=== PATIENT | female | born 1945 | race Caucasian/White ===

== ENCOUNTER 2025-02-13 19:43 | Inpatient (IN) ==
--- NOTE | 2025-02-13 19:58 | Emergency Department Note ---
Impression & Plan Hypoxia Admission ED Provider Note HPI: History obtained from EMS. The patient is a 79-year-old female who [facility] department [facility] over concern for hypoxia. Patient has been at the rehab facility for several days after a brief stay at [facility] after which she had negative CT imaging and negative MRI for altered mental status, weakness, and ambulatory difficulty. Patient had an episode of emesis today at rehab, a rapid response was called as the patient seemed to have some difficulty breathing shortly thereafter and was noted to be hypoxic and therefore was sent to the ER for further evaluation and concern for aspiration pneumonia. On arrival here to the ED, the patient seems confused, she is able to answer some simple questions and follows some commands, she is not oriented to place or time. Unclear baseline mental status. Patient was initially at 88% on room air on arrival here to the ED and was placed on nasal cannula oxygen with good improvement. Patient is also noted to be febrile on arrival at 38.1 Celsius. ROS: - Per HPI Differential Diagnosis: Aspiration pneumonia, small bowel obstruction, pulmonary edema, viral upper respiratory infection to include COVID-19, influenza A, ARDS, PE, amongst other potential pathologies. *Outpatient medications and allergy history reviewed. 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 Lab work shows a slight white blood cell count elevation at 11.27, hemoglobin is normal at 13.1, platelet count is normal. Venous blood gas shows a normal pH of 7.40, pCO2 is normal at 42. CMP does not show any evidence of any critical findings, lactic acid is normal at 1.5, creatinine is normal. Troponin is negative x 1. Procalcitonin is elevated at 6.08, COVID-19 testing is positive. I suspect this is the source of the patient's fever and likely also the source of her altered mentation. CT imaging of the head was obtained that does not show any evidence of any acute process. Chest x-ray is concerning for interstitial edema. Patient remained stable on 3 L nasal cannula oxygen. CT imaging of the abdomen pelvis was ordered without contrast, this shows some bilateral perinephric stranding, overall no obvious acute surgical abnormalities or evidence of small bowel obstruction. Urinalysis does appear to be consistent with infection, will send for urine culture, patient was treated here in the ED with a dose of IV Unasyn over concern for aspiration. Blood cultures were also drawn. On my reassessment the patient is hemodynamically stable on nasal cannula oxygen. I discussed all of the above findings with the patient's family at the bedside, they are in agreement for admission, case was also discussed with the on-call hospitalist, Dr. Key, the patient was placed for admission in stable condition. Consultants/Discussions held with other healthcare providers: - Hospitalist, Dr. Key Disposition discussion held by myself with: - Patient and patient's daughter at the bedside * CRITICAL CARE TIME: ( 46 ) minutes - Stabilization of hypoxia with oxygen saturations at 88% on room air requiring supplemental oxygen for correction, time spent at the bedside, interpretation of diagnostic studies, discussion with family, discussion with other healthcare providers and arrangement of admission. Diagnosis: 1. Hypoxia, acute 2. COVID-19 infection, acute 3. Altered mental status, acute 4. Fever, acute 5. Urinary tract infection, acute Disposition: Admission Xavi Jara DO Emergency Medicine Past Med/Surg History Problem List (Updated 02/13/25 @ 22:57 by Xavi Jara DO) Hypoxia (Acute) Social History Smoking Status: Unknown if ever smoked Allergies Allergies Allergy/AdvReac Type Severity Reaction Status Date / Time adhesive Allergy Intermediate RASH Verified 02/13/25 21:06 baclofen Allergy Unknown ON Verified 02/13/25 21:06 [facility] brompheniramine Allergy Unknown ON Verified 02/13/25 21:06 [From Drixoral] [facility] colesevelam [From WelChol] Allergy Unknown ON Verified 02/13/25 21:06 [facility] dexbrompheniramine Allergy Unknown ON Verified 02/13/25 21:06 [From Drixoral] [facility] duloxetine [From Cymbalta] Allergy Unknown ON Verified 02/13/25 21:06 [facility] meloxicam Allergy Unknown ON Verified 02/13/25 21:06 [facility] metformin Allergy Unknown ON Verified 02/13/25 21:06 [facility] Pork/Porcine Containing Allergy Unknown ON Verified 02/13/25 21:06 Products [facility] pseudoephedrine Allergy Unknown ON Verified 02/13/25 21:06 [From Drixoral] [facility] simvastatin Allergy Unknown ON Verified 02/13/25 21:06 [facility] Sulfa (Sulfonamide Allergy Unknown ON Verified 02/13/25 21:06 Antibiotics) [facility] tramadol Allergy Unknown ON Verified 02/13/25 21:06 [facility] Gold Salts AdvReac Intermediate GOLD Verified 02/13/25 21:06 INJECTION- TONGUE & RT SIDE BODY NUMB DIRECTSOL OTC Allergy Severe SOB Uncoded 02/13/25 21:06 Home Meds Home Medications Medication Instructions Recorded Confirmed acetaminophen 500 mg tablet 1,000 mg PO Q12H PRN Pain 02/13/25 02/13/25 (Tylenol Extra Strength) acetaminophen 500 mg tablet 500 mg PO Q4H PRN TEMP =>100.5 02/13/25 02/13/25 (Tylenol Extra Strength) aspirin 81 mg tablet,delayed 81 mg PO DAILY 02/13/25 02/13/25 release bisacodyl 10 mg rectal suppository 10 mg CO DAILY PRN Constipation 02/13/25 02/13/25 budesonide 0.5 mg/2 mL suspension 0.5 mg inhalation BID 02/13/25 02/13/25 for nebulization calcium acetate 667 mg tablet 667 mg PO DAILY 02/13/25 02/13/25 cholecalciferol (vitamin D3) 50 50 mcg PO DAILY 02/13/25 02/13/25 mcg (2,000 unit) capsule (Vitamin D3) docusate sodium 100 mg capsule 100 mg PO Q12H PRN Constipation 02/13/25 02/13/25 famotidine 20 mg tablet 20 mg PO DAILY 02/13/25 02/13/25 fluticasone propionate 50 2 spray intranasal DAILY PRN 02/13/25 02/13/25 mcg/actuation nasal Allergy Symptoms spray,suspension fondaparinux 2.5 mg/0.5 mL 2.5 mg subcut DAILY 02/13/25 02/13/25 subcutaneous solution syringe formoterol fumarate 20 mcg/2 mL 20 mcg inhalation BID 02/13/25 02/13/25 solution for nebulization (Perforomist) furosemide 20 mg tablet (Lasix) 20 mg PO DAILY 02/13/25 02/13/25 gabapentin 100 mg capsule 100 mg PO DAILY 02/13/25 02/13/25 metoclopramide HCl 5 mg tablet 5 mg PO AC 02/13/25 02/13/25 metoprolol succinate 25 mg 25 mg PO DAILY 02/13/25 02/13/25 tablet,extended release 24 hr ondansetron 4 mg disintegrating 4 mg PO Q6H PRN NAUSEA/VOMITING 02/13/25 02/13/25 tablet pantoprazole 40 mg tablet,delayed 40 mg PO BID 02/13/25 02/13/25 release polyethylene glycol 3350 17 17 g PO QDL PRN Constipation 02/13/25 02/13/25 gram/dose oral powder (Miralax) revefenacin 175 mcg/3 mL solution 175 mcg inhalation DAILY 02/13/25 02/13/25 for nebulization (Yujessyi) rosuvastatin 10 mg tablet (Crestor) 20 mg PO HS 02/13/25 02/13/25 sennosides 8.6 mg-docusate sodium 1 tab-cap PO QDL PRN Constipation 02/13/25 02/13/25 50 mg tablet (Senokot-S) sertraline 25 mg tablet 25 mg PO HS 02/13/25 02/13/25 sodium phosphates 19 gram-7 118 ml CO DAILY PRN Constipation 02/13/25 02/13/25 gram/118 mL enema (Fleet Enema) Results & Data (ED) Vital Signs Vital Signs - 24 hr 02/13/25 19:45 02/13/25 19:45 02/13/25 19:51 Temperature 38.1 C H Temperature Source Oral Pulse Rate 91 H 97 H Pulse Rate from SpO2 Sensor Respiratory Rate 18 23 Blood Pressure 119/81 119/81 Blood Pressure Mean 93 93 Pulse Oximetry 88 L 88 L 92 Oxygen Delivery Method Room Air Room Air Nasal Cannula Nasal Cannula Oxygen Flow Rate 3 Sepsis Recent Fever Within 48 Hours Yes Sepsis New/Unexplained Change in Mental Status Yes Sepsis Action Taken by Nursing Physician Notified Oxygen Flow Rate - Titration 3 Pulse Oximetry Post Tiitration 92 02/13/25 19:53 02/13/25 19:54 02/13/25 20:00 Temperature Temperature Source Pulse Rate 96 H 98 H Pulse Rate from SpO2 Sensor Respiratory Rate 22 Blood Pressure Blood Pressure Mean Pulse Oximetry 92 91 Oxygen Delivery Method Nasal Cannula Nasal Cannula Oxygen Flow Rate 3 3 Sepsis Recent Fever Within 48 Hours Sepsis New/Unexplained Change in Mental Status Sepsis Action Taken by Nursing Oxygen Flow Rate - Titration Pulse Oximetry Post Tiitration 02/13/25 20:15 02/13/25 20:18 02/13/25 20:30 Temperature Temperature Source Pulse Rate 123 H 116 H 74 Pulse Rate from SpO2 Sensor Respiratory Rate 21 19 17 Blood Pressure 113/88 Blood Pressure Mean 96 Pulse Oximetry 92 92 90 Oxygen Delivery Method Nasal Cannula Nasal Cannula Nasal Cannula Oxygen Flow Rate 3 3 3 Sepsis Recent Fever Within 48 Hours Sepsis New/Unexplained Change in Mental Status Sepsis Action Taken by Nursing Oxygen Flow Rate - Titration Pulse Oximetry Post Tiitration 02/13/25 20:45 02/13/25 21:15 02/13/25 21:30 Temperature Temperature Source Pulse Rate 80 88 Pulse Rate from SpO2 Sensor 88 Respiratory Rate 20 20 Blood Pressure 128/91 Blood Pressure Mean 103 Pulse Oximetry 91 91 91 Oxygen Delivery Method Nasal Cannula Nasal Cannula Nasal Cannula Oxygen Flow Rate 3 3 3 Sepsis Recent Fever Within 48 Hours Sepsis New/Unexplained Change in Mental Status Sepsis Action Taken by Nursing Oxygen Flow Rate - Titration Pulse Oximetry Post Tiitration 02/13/25 21:45 02/13/25 22:00 02/13/25 22:15 Temperature Temperature Source Pulse Rate 85 86 Pulse Rate from SpO2 Sensor 92 H Respiratory Rate 19 15 20 Blood Pressure 112/75 102/76 118/65 Blood Pressure Mean 87 84 82 Pulse Oximetry 92 92 92 Oxygen Delivery Method Nasal Cannula Nasal Cannula Nasal Cannula Oxygen Flow Rate 3 3 3 Sepsis Recent Fever Within 48 Hours Sepsis New/Unexplained Change in Mental Status Sepsis Action Taken by Nursing Oxygen Flow Rate - Titration Pulse Oximetry Post Tiitration 02/13/25 22:30 02/13/25 22:45 Temperature Temperature Source Pulse Rate 80 84 Pulse Rate from SpO2 Sensor Respiratory Rate 20 17 Blood Pressure 114/74 131/87 Blood Pressure Mean 87 101 Pulse Oximetry 93 92 Oxygen Delivery Method Nasal Cannula Nasal Cannula Oxygen Flow Rate 3 3 Sepsis Recent Fever Within 48 Hours Sepsis New/Unexplained Change in Mental Status Sepsis Action Taken by Nursing Oxygen Flow Rate - Titration Pulse Oximetry Post Tiitration Laboratory Data 02/13/25 21:42 02/13/25 21:42 Lab Results 02/13/25 02/13/25 Range/Units 20:28 21:42 WBC 11.27 H (4.8-10.8) K/ul RBC 4.17 L (4.20-5.40) M/uL Hgb 13.1 (12.0-16.0) g/dL Hct 38.4 (37.0-47.0) % MCV 92.1 (80.0-100.0) fL MCH 31.4 (25.0-34.0) pg MCHC 34.1 (32.0-36.0) g/dL RDW Std Deviation 49.0 H (36.4-46.3) fL RDW Coeff of Nelson 14.6 H (11.5-14.5) % Plt Count 363 (130-400) K/uL MPV 10.9 (9.4-12.4) fL PT Cancelled INR Cancelled VBG pH 7.40 (7.36-7.41) VBG pCO2 42 (38-50) mmHg VBG pO2 45 mmHg VBG HCO3 26 mmol/L VBG O2 Saturation 75.7 % VBG Base Excess 1.0 mEq/L Sodium 138 (136-145) mmol/L Potassium 3.5 (3.5-5.1) mmol/L Chloride 102 (98-107) mmol/L Carbon Dioxide 26 (21-32) mmol/L Anion Gap 10 (3-11) BUN 24 H (6-23) mg/dl Creatinine 1.10 (0.6-1.2) mg/dl Est Cr Clr Drug Dosing 45.4 ml/min eGFR 50.80 BUN/Creatinine Ratio 21.8 H (10-20) Glucose 160 H (70-99(Fasting)) mg/dl Lactate 1.5 (0.4-2.0) mmol/L Calcium 7.7 L (8.6-10.3) mg/dl Magnesium 1.7 (1.7-2.4) mg/dl Total Bilirubin 0.4 (0.2-1.0) mg/dl Direct Bilirubin 0.1 (0-0.2) mg/dl AST 48 H (13-39) U/L ALT 40 (7-52) U/L Alkaline Phosphatase 50 (34-104) U/L Troponin I High Sens 13.4 (0-14) pg/ml Total Protein 6.2 (6.0-8.3) gm/dl Albumin 3.0 L (3.4-5.0) gm/dl Procalcitonin 6.08 H (0-0.5) ng/ml Urine Color Codorus Urine Appearance Cloudy A (Clear) Urine pH 5.0 (4.5-7.5) Ur Specific Eunice 1.018 (1.000-1.030) Urine Protein 2+ H (Negative) Urine Glucose (UA) Negative (Negative) Urine Ketones Trace H (Negative) Urine Blood 3+ H (Negative) Urine Nitrite Positive A (Negative) Urine Bilirubin Negative (Negative) Urine Urobilinogen Negative (Negative) Ur Leukocyte Esterase 2+ H (Negative) Urine WBC (Auto) >50 H (0-5) /hpf Urine RBC (Auto) >20 H (0-2) /hpf U Hyaline Cast (Auto) 3-5 H (0-2) /lpf U Epithel Cells (Auto) 0-2 (0-2) /hpf Urine Bacteria (Auto) None Seen (None Seen) Hyaline Casts Present A (None Presnt) /lpf Urine Mucus Present A (None Prsent) Urine Comment SARS-CoV-2 (PCR) POSITIVE A (Negative) Influenza Type A (PCR) Negative (Neg) Influenza Type B (PCR) Negative (Neg) RSV (RT-PCR) Negative (Neg) Administered Medications Discontinued Medications Sodium Chloride (Nss) 500 mls @ 999 mls/hr IV .Q31M ANTONIO Stop: 02/13/25 20:30 Last Infusion: 02/13/25 21:15 Dose: Infused Documented By: Admin: 02/13/25 20:43 Dose: 999 mls/hr Documented By: CHIRAG Ampicillin Sodium/Sulbactam Sodium (Unasyn) 3,000 mg in 100 mls @ 200 mls/hr IV NOW STA Stop: 02/13/25 21:31 Last Infusion: 02/13/25 22:39 Dose: Infused Documented By: Admin: 02/13/25 22:07 Dose: 200 mls/hr Documented By: christopher Imaging Data Radiologist's Impression: Chest X-Ray 02/13/25 19:54 Exam(s): XR CXR 1 VIEW EXAM: XR Chest, 1 View CLINICAL HISTORY: Reason for exam: Sepsis. TECHNIQUE: Frontal view of the chest. COMPARISON: No relevant prior studies available. FINDINGS: Lungs: Low lung volumes with coarse interstitial markings throughout both lungs. No consolidation. Pleural space: Unremarkable. No pneumothorax. Heart: The cardiac silhouette is enlarged. Mediastinum: Unremarkable. Normal mediastinal contour. Bones/joints: Unremarkable. No acute fracture. Vasculature: The aortic arch is mildly calcified. Upper abdomen: Unremarkable as visualized. No pneumoperitoneum under the diaphragm. IMPRESSION: 1. Low lung volumes with coarse interstitial markings throughout both lungs. Consider underlying emphysema and fibrosis versus pulmonary edema. 2. The cardiac silhouette is enlarged. Electronically signed by: Juan Fajardo MD 02/13/25 20:[address] 02/13/25 20:01 Exam(s): CT HEAD Without Contrast EXAM: CT Head Without Intravenous Contrast CLINICAL HISTORY: Reason for exam: AMS. TECHNIQUE: Axial computed tomography images of the head/brain without intravenous contrast. CTDI is 35.22 mGy and DLP is 1959.44 mGy-cm. Automated exposure control was utilized for the study. A dose lowering technique was utilized adhering to the principles of ALARA. COMPARISON: 11/13/2011 FINDINGS: Brain: Mild cerebral atrophy and moderate periventricular and deep white matter low densities consistent with chronic small vessel disease and/or senescent changes, increased since previous. No acute large vessel infarct or intracranial hemorrhage is seen. Ventricles: Unremarkable. No ventriculomegaly. Bones/joints: Unremarkable. No acute fracture. Soft tissues: Unremarkable. Sinuses: Signs of previous sinus surgery. No significant mucosal thickening or gas fluid levels. Mastoid air cells: Unremarkable as visualized. No mastoid effusion. IMPRESSION: Mild cerebral atrophy and moderate periventricular and deep white matter low densities consistent with chronic small vessel disease and/or senescent changes, increased since previous. No acute large vessel infarct or intracranial hemorrhage is seen. Electronically signed by: Juan Fajardo MD 02/13/25 22:11 PM Abdomen/Pelvis CT 02/13/25 20:48 Exam(s): CT ABDOMEN + PELVIS Without Contrast EXAM: CT Abdomen and Pelvis Without Intravenous Contrast CLINICAL HISTORY: Reason for exam: vomiting. TECHNIQUE: Axial computed tomography images of the abdomen and pelvis without intravenous contrast. CTDI is 35.22 mGy and DLP is 1959.44 mGy-cm. Automated exposure control was utilized for the study. A dose lowering technique was utilized adhering to the principles of ALARA. COMPARISON: No relevant prior studies available. FINDINGS: Lung bases: Scattered left basilar atelectasis or infiltrate. Mediastinum: Markers from previous hiatal hernia repair. ABDOMEN: Liver: Unremarkable. Gallbladder and bile ducts: Biliary duct dilation post cholecystectomy. The common bile duct measures 17 mm. No choledocholithiasis is seen. Pancreas: Unremarkable. No ductal dilation. Spleen: Unremarkable. No splenomegaly. Adrenals: Unremarkable. No mass. Kidneys and ureters: Slight prominence of the right renal pelvis and ureter. No ureterolithiasis is seen. There is also slight perinephric stranding bilaterally which is nonspecific and can be seen in renal insufficiency. Urinary tract infection can not be excluded. Stomach and bowel: Bowel loops are nondilated. There is a staple line along the distal small bowel and right colon suggesting previous partial colectomy. There is moderate diverticulosis of the sigmoid colon without evidence of acute diverticulitis. No acute inflammatory changes are seen involving the bowel. PELVIS: Appendix: No findings to suggest acute appendicitis. Bladder: The urinary bladder is decompressed by a Ortiz catheter but otherwise unremarkable. No stones. Reproductive: Unremarkable as visualized. ABDOMEN and PELVIS: Intraperitoneal space: Unremarkable. No free air. No significant fluid collection. Bones/joints: [id number] multilevel degenerative changes throughout the spine including old healed 60% compression fracture at L3 and grade 1 spondylolisthesis of L4 on L5 due to degenerative facet arthrosis. No dislocation. Soft tissues: Unremarkable. Vasculature: The abdominal aorta is severely calcified but nondilated. This is a noncontrast study. Lymph nodes: Unremarkable. No enlarged lymph nodes. IMPRESSION: 1. Slight prominence of the right renal pelvis and ureter. No ureterolithiasis is seen. There is also slight perinephric stranding bilaterally which is nonspecific and can be seen in renal insufficiency. Urinary tract infection can not be excluded. 2. Biliary duct dilation post cholecystectomy. The common bile duct measures 17 mm. No choledocholithiasis is seen. 3. Bowel loops are nondilated. There is a staple line along the distal small bowel and right colon suggesting previous partial colectomy. There is moderate diverticulosis of the sigmoid colon without evidence of acute diverticulitis. No acute inflammatory changes are seen involving the bowel. Electronically signed by: Juan Fajardo MD 02/13/25 22:47 PM Discharge Plan Visit Data Chief Complaint: Altered Mental Status Stated Complaint: AMS ED Provider: Xavi Jara Discharge Problem: Hypoxia Patient Disposition: Admitted As Inpatient Condition: Fair Forms Stand Alone Forms: [facility] Prescriptions Prescriptions: No Action sennosides-docusate sodium [Senokot-S] 8.6-50 mg Tablet 1 tab-cap PO QDL PRN (Reason: Constipation) fondaparinux 2.5 mg/0.5 mL Syringe 2.5 mg SUBCUT DAILY aspirin 81 mg Tablet,Delayed Release (Dr/Ec) 81 mg PO DAILY acetaminophen [Tylenol Extra Strength] 500 mg Tablet 1,000 mg PO Q12H PRN (Reason: Pain) acetaminophen [Tylenol Extra Strength] 500 mg Tablet 500 mg PO Q4H PRN (Reason: TEMP =>100.5) famotidine 20 mg Tablet 20 mg PO DAILY metoclopramide HCl 5 mg Tablet 5 mg PO AC Rx Instructions: administer 30 minutes before meals bisacodyl 10 mg Suppository 10 mg CO DAILY PRN (Reason: Constipation) pantoprazole 40 mg Tablet,Delayed Release (Dr/Ec) 40 mg PO BID Rx Instructions: PRIOR TO BREAKFAST AND SUPPER Fleet Enema 19-7 gram/118 mL Enema 118 ml CO DAILY PRN (Reason: Constipation) docusate sodium 100 mg Capsule 100 mg PO Q12H PRN (Reason: Constipation) sertraline 25 mg Tablet 25 mg PO HS budesonide 0.5 mg/2 mL Suspension For Nebulization 0.5 mg INHALATION BID furosemide [Lasix] 20 mg Tablet 20 mg PO DAILY gabapentin 100 mg Capsule 100 mg PO DAILY metoprolol succinate 25 mg Tablet Extended Release 24 Hr 25 mg PO DAILY polyethylene glycol 3350 [Miralax] 17 gram/dose Powder 17 g PO QDL PRN (Reason: Constipation) ondansetron [Zofran ODT] 4 mg Tablet,Disintegrating 4 mg PO Q6H PRN (Reason: NAUSEA/VOMITING) fluticasone propionate [Flonase] 50 mcg/actuation Clio,Suspension 2 spray INTRANASAL DAILY PRN (Reason: Allergy Symptoms) Rx Instructions: administer into each nostril rosuvastatin [Crestor] 10 mg Tablet 20 mg PO HS formoterol fumarate [Perforomist] 20 mcg/2 mL Solution For Nebulization 20 mcg INHALATION BID cholecalciferol (vitamin D3) [Vitamin D3] 50 mcg (2,000 unit) Capsule 50 mcg PO DAILY Yupelri 175 mcg/3 mL Solution For Nebulization 175 mcg INHALATION DAILY calcium acetate 667 mg Tablet 667 mg PO DAILY Referrals Referrals: PCP,NO [Physician] -
[2025-02-13] MEDS: SODIUM CHLORIDE 0.9% 500 ML IV SCH (20:43)
--- NOTE | 2025-02-13 20:51 | XRay Report ---
Exam(s): XR CXR 1 VIEW EXAM: XR Chest, 1 View CLINICAL HISTORY: Reason for exam: Sepsis. TECHNIQUE: Frontal view of the chest. COMPARISON: No relevant prior studies available. FINDINGS: Lungs: Low lung volumes with coarse interstitial markings throughout both lungs. No consolidation. Pleural space: Unremarkable. No pneumothorax. Heart: The cardiac silhouette is enlarged. Mediastinum: Unremarkable. Normal mediastinal contour. Bones/joints: Unremarkable. No acute fracture. Vasculature: The aortic arch is mildly calcified. Upper abdomen: Unremarkable as visualized. No pneumoperitoneum under the diaphragm. IMPRESSION: 1. Low lung volumes with coarse interstitial markings throughout both lungs. Consider underlying emphysema and fibrosis versus pulmonary edema. 2. The cardiac silhouette is enlarged. Electronically signed by: Juan Fajardo MD 02/13/25 20:50 PM
[2025-02-13 21:03] LABS: Appearance Urine Cloudy (Clear); Bacteria Urine Automated None Seen (None Seen); Epithelial Cell Urine Auto 0-2 /hpf (0-2); Glucose Urine UA Negative (Negative); RBC Urine Automated >20 /hpf (0-2); WBC Urine Automated >50 /hpf (0-5)
[2025-02-13 21:24] LABS: Influenza A virus by PCR Negative (Neg); Influenza B virus by PCR Negative (Neg); SARS CoV2 RNA(COVID-19) Ceph POSITIVE (Negative)
[2025-02-13 21:57] LABS: Base Excess VBG 1.0 mEq/L; HCO3 VBG 26 mmol/L; Hematocrit (blood only) 38.4 % (37.0-47.0); Hemoglobin 13.1 g/dL (12.0-16.0); Mean Corpuscular Hemoglobin 31.4 pg (25.0-34.0); Mean Corpuscular Volume 92.1 fL (80.0-100.0); Oxygen Saturation VBG 75.7 %; PCO2 VBG 42 mmHg (38-50); PO2 VBG 45 mmHg; Platelet Count 363 K/uL (130-400); RDW Standard Deviation 49.0 fL (36.4-46.3); Red Blood Count 4.17 M/uL (4.20-5.40); White Blood Count 11.27 K/ul (4.8-10.8); pH VBG 7.40 (7.36-7.41)
[2025-02-13] MEDS: AMPICILLIN/SULBACTAM SOD 3,000 MG/100 ML BAG IV STA (22:07)
--- NOTE | 2025-02-13 22:12 | CT Scan Report ---
Exam(s): CT HEAD Without Contrast EXAM: CT Head Without Intravenous Contrast CLINICAL HISTORY: Reason for exam: AMS. TECHNIQUE: Axial computed tomography images of the head/brain without intravenous contrast. CTDI is 35.22 mGy and DLP is 1959.44 mGy-cm. Automated exposure control was utilized for the study. A dose lowering technique was utilized adhering to the principles of ALARA. COMPARISON: 11/13/2011 FINDINGS: Brain: Mild cerebral atrophy and moderate periventricular and deep white matter low densities consistent with chronic small vessel disease and/or senescent changes, increased since previous. No acute large vessel infarct or intracranial hemorrhage is seen. Ventricles: Unremarkable. No ventriculomegaly. Bones/joints: Unremarkable. No acute fracture. Soft tissues: Unremarkable. Sinuses: Signs of previous sinus surgery. No significant mucosal thickening or gas fluid levels. Mastoid air cells: Unremarkable as visualized. No mastoid effusion. IMPRESSION: Mild cerebral atrophy and moderate periventricular and deep white matter low densities consistent with chronic small vessel disease and/or senescent changes, increased since previous. No acute large vessel infarct or intracranial hemorrhage is seen. Electronically signed by: Juan Fajardo MD 02/13/25 22:11 PM
[2025-02-13 22:18] LABS: Alanine Aminotransferase 40.0 U/L (7-52); Albumin Level 3.0 gm/dl (3.4-5.0); Alkaline Phosphatase 50.0 U/L (34-104); Anion Gap 10.0 (3-11); Bilirubin,Total 0.4 mg/dl (0.2-1.0); Blood Urea Nitrogen 24.0 mg/dl (6-23); Calcium 7.7 mg/dl (8.6-10.3); Carbon Dioxide 26.0 mmol/L (21-32); Chloride 102.0 mmol/L (98-107); Creatinine Clr Calc Pharmacy 45.4 ml/min; Glucose 160.0 mg/dl (70-99(Fasting)); Magnesium 1.7 mg/dl (1.7-2.4); Potassium 3.5 mmol/L (3.5-5.1); Sodium 138.0 mmol/L (136-145); Total Protein 6.2 gm/dl (6.0-8.3)
--- NOTE | 2025-02-13 22:48 | CT Scan Report ---
Exam(s): CT ABDOMEN + PELVIS Without Contrast EXAM: CT Abdomen and Pelvis Without Intravenous Contrast CLINICAL HISTORY: Reason for exam: vomiting. TECHNIQUE: Axial computed tomography images of the abdomen and pelvis without intravenous contrast. CTDI is 35.22 mGy and DLP is 1959.44 mGy-cm. Automated exposure control was utilized for the study. A dose lowering technique was utilized adhering to the principles of ALARA. COMPARISON: No relevant prior studies available. FINDINGS: Lung bases: Scattered left basilar atelectasis or infiltrate. Mediastinum: Markers from previous hiatal hernia repair. ABDOMEN: Liver: Unremarkable. Gallbladder and bile ducts: Biliary duct dilation post cholecystectomy. The common bile duct measures 17 mm. No choledocholithiasis is seen. Pancreas: Unremarkable. No ductal dilation. Spleen: Unremarkable. No splenomegaly. Adrenals: Unremarkable. No mass. Kidneys and ureters: Slight prominence of the right renal pelvis and ureter. No ureterolithiasis is seen. There is also slight perinephric stranding bilaterally which is nonspecific and can be seen in renal insufficiency. Urinary tract infection can not be excluded. Stomach and bowel: Bowel loops are nondilated. There is a staple line along the distal small bowel and right colon suggesting previous partial colectomy. There is moderate diverticulosis of the sigmoid colon without evidence of acute diverticulitis. No acute inflammatory changes are seen involving the bowel. PELVIS: Appendix: No findings to suggest acute appendicitis. Bladder: The urinary bladder is decompressed by a Ortiz catheter but otherwise unremarkable. No stones. Reproductive: Unremarkable as visualized. ABDOMEN and PELVIS: Intraperitoneal space: Unremarkable. No free air. No significant fluid collection. Bones/joints: [id number] multilevel degenerative changes throughout the spine including old healed 60% compression fracture at L3 and grade 1 spondylolisthesis of L4 on L5 due to degenerative facet arthrosis. No dislocation. Soft tissues: Unremarkable. Vasculature: The abdominal aorta is severely calcified but nondilated. This is a noncontrast study. Lymph nodes: Unremarkable. No enlarged lymph nodes. IMPRESSION: 1. Slight prominence of the right renal pelvis and ureter. No ureterolithiasis is seen. There is also slight perinephric stranding bilaterally which is nonspecific and can be seen in renal insufficiency. Urinary tract infection can not be excluded. 2. Biliary duct dilation post cholecystectomy. The common bile duct measures 17 mm. No choledocholithiasis is seen. 3. Bowel loops are nondilated. There is a staple line along the distal small bowel and right colon suggesting previous partial colectomy. There is moderate diverticulosis of the sigmoid colon without evidence of acute diverticulitis. No acute inflammatory changes are seen involving the bowel. Electronically signed by: Juan Fajardo MD 02/13/25 22:47 PM
[2025-02-13 23:39] LABS: Immature Granulocytes # (auto) 0.14 K/uL (0.01-0.20); Immature Granulocytes % (auto) 1.2 %; Polychromasia 1+
[2025-02-13 23:49] LABS: INR 1.0 (0.9-1.1); Prothrombin Time 10.9 Seconds (9.0-12.0)
--- NOTE | 2025-02-13 23:54 | History & Physical Report ---
Date of Service February 13, 2025 Assessment & Plan (1) Acute respiratory failure with hypoxia: (2) COVID-19: (3) HAP (hospital-acquired pneumonia): (4) Urinary tract infection: Plan The patient is a 79-year-old female with a past medical history including anxiety, osteoarthritis, asthma, lung cancer, coronary disease, colon cancer, carotid artery disease, chronic back and neck pain with history of compression fractures, COPD, depression, diabetes mellitus type 2, dysphagia, GERD esophagitis, hard of hearing, hiatal hernia, hyperlipidemia, hypertension, urinary incontinence, cognitive impairment with memory deficits, neuropathy, obesity, pulmonary fibrosis, rhabdomyolysis, and sleep apnea. She is referred from [facility]hab today, where a rapid response was called when she had an episode of emesis at therapy, and there was concern regarding aspiration pneumonia earlier this evening. She was noted to have labored breathing and oxygen saturation was 87-89% on room air, and she appeared pale in color. She was unable to follow instructions at that time and appeared more confused and had increasing weakness. She was given Zofran. She then had a second episode of emesis at 1104. EMS was then called to [facility], patient was thought to have probable aspiration with pulse ox in the 80s on room air. She was then brought to [facility] emergency department for further evaluation. Workup at [facility] included the following abnormal laboratories: Magnesium 1.7, potassium 3.5, glucose 160, COVID-positive, flu and RSV negative, urinalysis was suggestive of infection. CT scan of head showed chronic small vessel disease. CT scan of abdomen and pelvis showed a left lower lobe infiltrate, right sided partial colectomy, and slight bilateral perinephric stranding bilaterally. Procalcitonin 6.08, albumin 3.0, AST 48. Patient was found to have a pulse ox of 88% on room air, which improved to 92% on 3 L. From the ED patient was given normal saline 500 mL bolus, and Unasyn 3 g IV. She was then referred for evaluation for admission to [facility] hospitalist service. Patient had initially been seen at [facility] emergency department on 02/10, with complaints of confusion, blurred vision, and left- sided weakness. She was evaluated there as a stroke alert, had a CT of the head which showed no significant findings. Neurology was contacted, and they recommended increasing her statin, getting an MRI of the brain, and continuing aspirin. Lab work and other imaging there did not demonstrate any acute findings. The diagnosis there was transient ischemic attack. MRI of the brain showed no evidence of acute stroke. Patient remained neurologically intact while she was admitted there, and no weakness was demonstrated or blurred vision. Family reported at that time that her mental status seemed to be at b aseline. She was [facility] on 02/12 for inpatient rehab therapy. #Acute respiratory failure with hypoxia/COVID-19 infection/left lower lobe pneumonia HAP- Give Solu-Medrol 60 mg IV now, then 40 mg IV every 8 hours Continue Unasyn 3 g IV every 6 hours begun in the ED Azithromycin 500 mg IV every 24 hours MRSA swab Duonebs every 4 hours while awake and every 2 hours when necessary. Budesonide 0.5 mg inhaled twice daily NPO for now, until confusion improves. LR at 80 mL/h x 2 L Tylenol 1 g IV every 8 hours as needed for mild pain or fever Pantoprazole 40 mg IV daily Zofran 4 mg IV every 6 hours as needed COVID precautions #Urinary tract infection/perinephric stranding bilaterally- Follow urine culture and sensitivity Antibiotics as above IV fluids as above #Electrolyte disturbances/hypomagnesemia/hypokalemia- Magnesium 1.7, potassium 3.5. Give magnesium sulfate 2 g IV IV fluids as above Recheck laboratories in the a.m. #TIA/cognitive impairment with memory deficits- Patient had been admitted to [facility] from 02/10- 02/12, then was transferred to [facility], prior to being transferred to [facility] emergency department on 02/13. CT scan of head and MRI brain at [place] were negative for acute findings CT scan of head this evening at [facility] shows chronic small vessel disease, no acute findings. Patient's confusion at this point is more likely associated with encephalopathy associated with infections as above, complicating underlying problem of cognitive impairment with memory deficits. Follow response as above infections are treated. #Physical deconditioning- Patient will need to return to [facility] for continued inpatient care. DVT prophylaxis- Patient has been on fondaparinux, for undocumented reasons. Unclear if HIT history. Could try to further clarify with her PCP during the daytime. Total of 78 spent minutes spent with records review, discussion with family, evaluation of patient, and preparation of medical record History of Present Illness Primary Care Provider: Cristian Montes DO The patient is a 79-year-old female with a past medical history including anxiety, osteoarthritis, asthma, lung cancer, coronary disease, colon cancer, carotid artery disease, chronic back and neck pain with history of compression fractures, COPD, depression, diabetes mellitus type 2, dysphagia, GERD esophagitis, hard of hearing, hiatal hernia, hyperlipidemia, hypertension, urinary incontinence, cognitive impairment with memory deficits, neuropathy, obesity, pulmonary fibrosis, rhabdomyolysis, and sleep apnea. She is referred from [facility] today, where a rapid response was called when she had an episode of emesis at therapy, and there was concern regarding aspiration pneumonia earlier this evening. She was noted to have labored breathing and oxygen saturation was 87-89% on room air, and she appeared pale in color. She was unable to follow instructions at that time and appeared more confused and had increasing weakness. She was given Zofran. She then had a second episode of emesis at 1104. EMS was then called to [facility], patient was thought to have probable aspiration with pulse ox in the 80s on room air. She was then brought to [facility] emergency department for further evaluation. Workup at [facility] included the following abnormal laboratories: Magnesium 1.7, potassium 3.5, glucose 160, COVID-positive, flu and RSV negative, urinalysis was suggestive of infection. CT scan of head showed chronic small vessel disease. CT scan of abdomen and pelvis showed a left lower lobe infiltrate, right sided partial colectomy, and slight bilateral perinephric stranding bilaterally. Procalcitonin 6.08, albumin 3.0, AST 48. Patient was found to have a pulse ox of 88% on room air, which improved to 92% on 3 L. From the ED patient was given normal saline 500 mL bolus, and Unasyn 3 g IV. She was then referred for evaluation for admission to [facility] hospitalist service. Patient had initially been seen at [facility] emergency department on 02/10, with complaints of confusion, blurred vision, and left- sided weakness. She was evaluated there as a stroke alert, had a CT of the head which showed no significant findings. Neurology was contacted, and they recommended increasing her statin, getting an MRI of the brain, and continuing aspirin. Lab work and other imaging there did not demonstrate any acute find ings. The diagnosis there was transient ischemic attack. MRI of the brain showed no evidence of acute stroke. Patient remained neurologically intact while she was admitted there, and no weakness was demonstrated or blurred vision. Family reported at that time that her mental status seemed to be at baseline. She was transferred to [facility] on 02/12 for inpatient rehab therapy. Allergies Allergy/AdvReac Type Severity Reaction Status Date / Time adhesive Allergy Intermediate RASH Verified 02/13/25 21:06 baclofen Allergy Unknown ON Verified 02/13/25 21:06 [facility] brompheniramine Allergy Unknown ON Verified 02/13/25 21:06 [From Drixoral] [facility] colesevelam [From WelChol] Allergy Unknown ON Verified 02/13/25 21:06 [facility] dexbrompheniramine Allergy Unknown ON Verified 02/13/25 21:06 [From Drixoral] [facility] duloxetine [From Cymbalta] Allergy Unknown ON Verified 02/13/25 21:06 [facility] meloxicam Allergy Unknown ON Verified 02/13/25 21:06 [facility] metformin Allergy Unknown ON Verified 02/13/25 21:06 [facility] Pork/Porcine Containing Allergy Unknown ON Verified 02/13/25 21:06 Products [facility] pseudoephedrine Allergy Unknown ON Verified 02/13/25 21:06 [From Drixoral] [facility] simvastatin Allergy Unknown ON Verified 02/13/25 21:06 [facility] Sulfa (Sulfonamide Allergy Unknown ON Verified 02/13/25 21:06 Antibiotics) [facility] tramadol Allergy Unknown ON Verified 02/13/25 21:06 [facility] Gold Salts AdvReac Intermediate GOLD Verified 02/13/25 21:06 INJECTION- TONGUE & RT SIDE BODY NUMB DIRECTSOL OTC Allergy Severe SOB Uncoded 02/13/25 21:06 Home Medications Medication Instructions Recorded Confirmed Type acetaminophen 500 mg tablet 1,000 mg PO Q12H PRN Pain 02/13/25 02/13/25 History (Tylenol Extra Strength) acetaminophen 500 mg tablet 500 mg PO Q4H PRN TEMP =>100.5 02/13/25 02/13/25 History (Tylenol Extra Strength) aspirin 81 mg tablet,delayed 81 mg PO DAILY 02/13/25 02/13/25 History release bisacodyl 10 mg rectal suppository 10 mg NH DAILY PRN Constipation 02/13/25 02/13/25 History budesonide 0.5 mg/2 mL suspension 0.5 mg inhalation BID 02/13/25 02/13/25 History for nebulization calcium acetate 667 mg tablet 667 mg PO DAILY 02/13/25 02/13/25 History cholecalciferol (vitamin D3) 50 50 mcg PO DAILY 02/13/25 02/13/25 History mcg (2,000 unit) capsule (Vitamin D3) docusate sodium 100 mg capsule 100 mg PO Q12H PRN Constipation 02/13/25 02/13/25 History famotidine 20 mg tablet 20 mg PO DAILY 02/13/25 02/13/25 History fluticasone propionate 50 2 spray intranasal DAILY PRN 02/13/25 02/13/25 History mcg/actuation nasal Allergy Symptoms spray,suspension fondaparinux 2.5 mg/0.5 mL 2.5 mg subcut DAILY 02/13/25 02/13/25 History subcutaneous solution syringe formoterol fumarate 20 mcg/2 mL 20 mcg inhalation BID 02/13/25 02/13/25 History solution for nebulization (Perforomist) furosemide 20 mg tablet (Lasix) 20 mg PO DAILY 02/13/25 02/13/25 History gabapentin 100 mg capsule 100 mg PO DAILY 02/13/25 02/13/25 History metoclopramide HCl 5 mg tablet 5 mg PO AC 02/13/25 02/13/25 History metoprolol succinate 25 mg 25 mg PO DAILY 02/13/25 02/13/25 History tablet,extended release 24 hr ondansetron 4 mg disintegrating 4 mg PO Q6H PRN NAUSEA/VOMITING 02/13/25 02/13/25 History tablet pantoprazole 40 mg tablet,delayed 40 mg PO BID 02/13/25 02/13/25 History release polyethylene glycol 3350 17 17 g PO QDL PRN Constipation 02/13/25 02/13/25 History gram/dose oral powder (Miralax) revefenacin 175 mcg/3 mL solution 175 mcg inhalation DAILY 02/13/25 02/13/25 History for nebulization (Luca) rosuvastatin 10 mg tablet (Crestor) 20 mg PO HS 02/13/25 02/13/25 History sennosides 8.6 mg-docusate sodium 1 tab-cap PO QDL PRN Constipation 02/13/25 02/13/25 History 50 mg tablet (Senokot-S) sertraline 25 mg tablet 25 mg PO HS 02/13/25 02/13/25 History sodium phosphates 19 gram-7 118 ml NH DAILY PRN Constipation 02/13/25 02/13/25 History gram/118 mL enema (Fleet Enema) Past Med/Surg History Problem List (Updated 02/14/25 @ 01:13 by Sandoval Key MD) Hypomagnesemia HAP (hospital-acquired pneumonia) Urinary tract infection Left lower lobe pneumonia Acute respiratory failure with hypoxia COVID-19 Hypoxia (Acute) Medical History (Updated 02/14/25 @ 01:13 by Sandoval Key MD) Abnormal findings on esophagogastroduodenoscopy (EGD) Sleep apnea History of rhabdomyolysis Pulmonary fibrosis Neuropathy Mild cognitive impairment with memory loss Urinary incontinence Hypertension Hyperlipidemia Hiatal hernia Hard of hearing GERD without esophagitis Diabetes mellitus Depression with anxiety COPD (chronic obstructive pulmonary disease) Chronic neck pain Chronic back pain Carotid artery disease Colon cancer Coronary artery disease Asthma Osteoarthritis Anxiety Social History Smoking Status: Unknown if ever smoked Review of Systems Review of Systems: Review of systems in HPI provided by records from EMS, and daughter and son-in-law who are in attendance in the ED, as patient was too confused to con tribute. Physical Exam Physical Exam: The patient is awake, unable to respond to questions, well developed and well nourished, normocephalic and atraumatic, lying in bed and in no acute distress. HEENT--PERRL, EOMI, mucous membranes and oropharynx dry. Neck--supple. No JVD. No bruits. Thyroid normal, trachea midline, no adenopathy. Heart--normal S1 and S2. No murmurs, rubs or gallops. Lungs--diffuse expiratory extra wheezing bilaterally. Rhonchi at the bases bilaterally right greater than left. No respiratory distress, no accessory muscle use. Abdomen--normal bowel sounds and soft. Nontender. Nondistended, no hernias or masses, no organomegaly. Extremities--no cyanosis or clubbing. No edema. Dermatologic--normal skin turgor, normal color, no abnormal lymph nodes, no rash. Neurologic--cranial nerves II through XII grossly intact. Rheumatologic--limited exam Psychiatric--confused. Results & Data Results & Data Vital Signs (Past 12 Hours) Vital Signs Temp Pulse Resp BP Pulse Ox O2 Del Method O2 Flow Rate 02/13/25 23:22 37.0 C 02/13/25 22:45 84 17 131/87 92 Nasal Cannula 3 02/13/25 22:30 80 20 114/74 93 Nasal Cannula 3 02/13/25 22:15 86 20 118/65 92 Nasal Cannula 3 02/13/25 22:00 85 15 102/76 92 Nasal Cannula 3 02/13/25 21:45 19 112/75 92 Nasal Cannula 3 02/13/25 21:30 88 20 91 Nasal Cannula 3 02/13/25 21:15 128/91 91 Nasal Cannula 3 02/13/25 20:45 80 20 91 Nasal Cannula 3 02/13/25 20:30 74 17 90 Nasal Cannula 3 02/13/25 20:18 116 H 19 113/88 92 Nasal Cannula 3 02/13/25 20:15 123 H 21 92 Nasal Cannula 3 02/13/25 20:00 98 H 22 91 Nasal Cannula 3 02/13/25 19:54 92 Nasal Cannula 3 02/13/25 19:53 96 H 02/13/25 19:51 97 H 23 119/81 92 Nasal Cannula 3 02/13/25 19:45 88 L Room Air, Nasal Cannula 02/13/25 19:45 38.1 C H 91 H 18 119/81 88 L Room Air Laboratory Results Laboratory Results WBC 11.27 K/ul (4.8-10.8) H 02/13/25 21:42 RBC 4.17 M/uL (4.20-5.40) L 02/13/25 21:42 Hgb 13.1 g/dL (12.0-16.0) 02/13/25 21:42 Hct 38.4 % (37.0-47.0) 02/13/25 21:42 MCV 92.1 fL (80.0-100.0) 02/13/25 21:42 MCH 31.4 pg (25.0-34.0) 02/13/25 21:42 MCHC 34.1 g/dL (32.0-36.0) 02/13/25 21:42 RDW Std Deviation 49.0 fL (36.4-46.3) H 02/13/25 21:42 RDW Coeff of Nelson 14.6 % (11.5-14.5) H 02/13/25 21:42 Plt Count 363 K/uL (130-400) 02/13/25 21:42 MPV 10.9 fL (9.4-12.4) 02/13/25 21:42 Immature Gran % (Auto) 1.2 % 02/13/25 21:42 Neut % (Auto) 92.0 % 02/13/25 21:42 Lymph % (Auto) 2.0 % 02/13/25 21:42 Leake % (Auto) 4.5 % 02/13/25 21:42 Eos % (Auto) 0.0 % 02/13/25 21:42 Baso % (Auto) 0.3 % 02/13/25 21:42 Neut # (Auto) 10.36 K/uL (1.40-6.50) H 02/13/25 21:42 Lymph # (Auto) 0.23 K/uL (1.20-3.40) L 02/13/25 21:42 Leake # (Auto) 0.51 K/uL (0.11-0.59) 02/13/25 21:42 Eos # (Auto) 0.00 K/uL (0.00-0.50) 02/13/25 21:42 Baso # (Auto) 0.03 K/uL (0.00-0.20) 02/13/25 21:42 Immature Gran # (Auto) 0.14 K/uL (0.01-0.20) 02/13/25 21:42 Polychromasia 1+ 02/13/25 21:42 Echinocytes 2+ 02/13/25 21:42 PT 10.9 Seconds (9.0-12.0) 02/13/25 22:40 INR 1.0 (0.9-1.1) 02/13/25 22:40 VBG pH 7.40 (7.36-7.41) 02/13/25 21:42 VBG pCO2 42 mmHg (38-50) 02/13/25 21:42 VBG pO2 45 mmHg 02/13/25 21:42 VBG HCO3 26 mmol/L 02/13/25 21:42 VBG O2 Saturation 75.7 % 02/13/25 21:42 VBG Base Excess 1.0 mEq/L 02/13/25 21:42 Sodium 138 mmol/L (136-145) 02/13/25 21:42 Potassium 3.5 mmol/L (3.5-5.1) 02/13/25 21:42 Chloride 102 mmol/L (98-107) 02/13/25 21:42 Carbon Dioxide 26 mmol/L (21-32) 02/13/25 21:42 Anion Gap 10 (3-11) 02/13/25 21:42 BUN 24 mg/dl (6-23) H 02/13/25 21:42 Creatinine 1.10 mg/dl (0.6-1.2) 02/13/25 21:42 Est Cr Clr Drug Dosing 45.4 ml/min 02/13/25 21:42 eGFR 50.80 02/13/25 21:42 BUN/Creatinine Ratio 21.8 (10-20) H 02/13/25 21:42 Glucose 160 mg/dl (70-99(Fasting)) H 02/13/25 21:42 Lactate 1.5 mmol/L (0.4-2.0) 02/13/25 21:42 Calcium 7.7 mg/dl (8.6-10.3) L 02/13/25 21:42 Magnesium 1.7 mg/dl (1.7-2.4) 02/13/25 21:42 Total Bilirubin 0.4 mg/dl (0.2-1.0) 02/13/25 21:42 Direct Bilirubin 0.1 mg/dl (0-0.2) 02/13/25 21:42 AST 48 U/L (13-39) H 02/13/25 21:42 ALT 40 U/L (7-52) 02/13/25 21:42 Alkaline Phosphatase 50 U/L (34-104) 02/13/25 21:42 Troponin I High Sens 13.4 pg/ml (0-14) 02/13/25 21:42 B-Natriuretic Peptide 191 pg/ml (0-100) H 02/13/25 21:42 Total Protein 6.2 gm/dl (6.0-8.3) 02/13/25 21:42 Albumin 3.0 gm/dl (3.4-5.0) L 02/13/25 21:42 Procalcitonin 6.08 ng/ml (0-0.5) H 02/13/25 21:42 Urine Color [place] 02/13/25 20: Urine Appearance Cloudy (Clear) A 02/13/25 20: Urine pH 5.0 (4.5-7.5) 02/13/25 20: Ur Specific [place] 1.018 (1.000-1.030) 02/13/25: Urine Protein 2+ (Negative) H 02/13/25: Urine Glucose (UA) Negative (Negative) 02/13/25 Urine Ketones Trace (Negative) H 02/13/25 Urine Blood 3+ (Negative) H 02/13/25: Urine Nitrite Positive (Negative) A 02/13/25 Urine Bilirubin Negative (Negative) 02/13/25: Urine Urobilinogen Negative (Negative) 02/13/25: Ur Leukocyte Esterase 2+ (Negative) H 02/13/25: Urine WBC (Auto) >50 /hpf (0-5) H 02/13/25: Urine RBC (Auto) >20 /hpf (0-2) H 02/13/25: U Hyaline Cast (Auto) 3-5 /lpf (0-2) H 02/13/25: U Epithel Cells (Auto) 0-2 /hpf (0-2) 02/13/25 20: Urine Bacteria (Auto) None Seen (None Seen) 02/13/25: Hyaline Casts Present /lpf (None Presnt) A 02/13/25: Urine Mucus Present (None Prsent) A 02/13/25: Urine Comment 02/13/25: SARS-CoV-2 (PCR) POSITIVE (Negative) A 02/13/25 20: Influenza Type A (PCR) Negative (Neg) 02/13/25 Influenza Type B (PCR) Negative (Neg) 12/24/25 20:28 RSV (RT-PCR) Negative (Neg) 02/13/25 20:28 Impressions Chest X-Ray 02/13/25 19:54 Exam(s): XR CXR 1 VIEW EXAM: XR Chest, 1 View CLINICAL HISTORY: Reason for exam: Sepsis. TECHNIQUE: Frontal view of the chest. COMPARISON: No relevant prior studies available. FINDINGS: Lungs: Low lung volumes with coarse interstitial markings throughout both lungs. No consolidation. Pleural space: Unremarkable. No pneumothorax. Heart: The cardiac silhouette is enlarged. Mediastinum: Unremarkable. Normal mediastinal contour. Bones/joints: Unremarkable. No acute fracture. Vasculature: The aortic arch is mildly calcified. Upper abdomen: Unremarkable as visualized. No pneumoperitoneum under the diaphragm. IMPRESSION: 1. Low lung volumes with coarse interstitial markings throughout both lungs. Consider underlying emphysema and fibrosis versus pulmonary edema. 2. The cardiac silhouette is enlarged. Electronically signed by: Juan Fajardo MD 02/13/25 20:[address] 02/13/25 20:01 Exam(s): CT HEAD Without Contrast EXAM: CT Head Without Intravenous Contrast CLINICAL HISTORY: Reason for exam: AMS. TECHNIQUE: Axial computed tomography images of the head/brain without intravenous contrast. CTDI is 35.22 mGy and DLP is 1959.44 mGy-cm. Automated exposure control was utilized for the study. A dose lowering technique was utilized adhering to the principles of ALARA. COMPARISON: 11/13/2011 FINDINGS: Brain: Mild cerebral atrophy and moderate periventricular and deep white matter low densities consistent with chronic small vessel disease and/or senescent changes, increased since previous. No acute large vessel infarct or intracranial hemorrhage is seen. Ventricles: Unremarkable. No ventriculomegaly. Bones/joints: Unremarkable. No acute fracture. Soft tissues: Unremarkable. Sinuses: Signs of previous sinus surgery. No significant mucosal thickening or gas fluid levels. Mastoid air cells: Unremarkable as visualized. No mastoid effusion. IMPRESSION: Mild cerebral atrophy and moderate periventricular and deep white matter low densities consistent with chronic small vessel disease and/or senescent changes, increased since previous. No acute large vessel infarct or intracranial hemorrhage is seen. Electronically signed by: Juan Fajardo MD 02/13/25 22:11 PM Abdomen/Pelvis CT 02/13/25 20:48 Exam(s): CT ABDOMEN + PELVIS Without Contrast EXAM: CT Abdomen and Pelvis Without Intravenous Contrast CLINICAL HISTORY: Reason for exam: vomiting. TECHNIQUE: Axial computed tomography images of the abdomen and pelvis without intravenous contrast. CTDI is 35.22 mGy and DLP is 1959.44 mGy-cm. Automated exposure control was utilized for the study. A dose lowering technique was utilized adhering to the principles of ALARA. COMPARISON: No relevant prior studies available. FINDINGS: Lung bases: Scattered left basilar atelectasis or infiltrate. Mediastinum: Markers from previous hiatal hernia repair. ABDOMEN: Liver: Unremarkable. Gallbladder and bile ducts: Biliary duct dilation post cholecystectomy. The common bile duct measures 17 mm. No choledocholithiasis is seen. Pancreas: Unremarkable. No ductal dilation. Spleen: Unremarkable. No splenomegaly. Adrenals: Unremarkable. No mass. Kidneys and ureters: Slight prominence of the right renal pelvis and ureter. No ureterolithiasis is seen. There is also slight perinephric stranding bilaterally which is nonspecific and can be seen in renal insufficiency. Urinary tract infection can not be excluded. Stomach and bowel: Bowel loops are nondilated. There is a staple line along the distal small bowel and right colon suggesting previous partial colectomy. There is moderate diverticulosis of the sigmoid colon without evidence of acute diverticulitis. No acute inflammatory changes are seen involving the bowel. PELVIS: Appendix: No findings to suggest acute appendicitis. Bladder: The urinary bladder is decompressed by a Ortiz catheter but otherwise unremarkable. No stones. Reproductive: Unremarkable as visualized. ABDOMEN and PELVIS: Intraperitoneal space: Unremarkable. No free air. No significant fluid collection. Bones/joints: [id number] multilevel degenerative changes throughout the spine including old healed 60% compression fracture at L3 and grade 1 spondylolisthesis of L4 on L5 due to degenerative facet arthrosis. No dislocation. Soft tissues: Unremarkable. Vasculature: The abdominal aorta is severely calcified but nondilated. This is a noncontrast study. Lymph nodes: Unremarkable. No enlarged lymph nodes. IMPRESSION: 1. Slight prominence of the right renal pelvis and ureter. No ureterolithiasis is seen. There is also slight perinephric stranding bilaterally which is nonspecific and can be seen in renal insufficiency. Urinary tract infection can not be excluded. 2. Biliary duct dilation post cholecystectomy. The common bile duct measures 17 mm. No choledocholithiasis is seen. 3. Bowel loops are nondilated. There is a staple line along the distal small bowel and right colon suggesting previous partial colectomy. There is moderate diverticulosis of the sigmoid colon without evidence of acute diverticulitis. No acute inflammatory changes are seen involving the bowel. Electronically signed by: Juan Fajardo MD 02/13/25 22:47 PM Code Status & VTE Plan Code Status Full code VTE Prophylaxis Plan VTE Prophylaxis will be ordered: Yes PG Care Time/CCT Total # of Minutes Spent Total Time Spent with Patient: Total time spent is greater than 50% in coordination of care (as documented) at patient's floor/unit and/or counseling patient: Coding Level of Care Code 54673 INT INP/OBS CARE 3/75MIN (25 - SIGNIFICANT, SEPARATELY IDENTIFIABLE ) Diagnoses Acute respiratory failure with hypoxia J96.01 COVID-19 U07.1 HAP (hospital-acquired pneumonia) J18.9; Y95 Urinary tract infection N39.0
[2025-02-14] MEDS ORDERED: ONDANSETRON INJ 2 MG/ML 2 ML VIAL IV PRN (00:50)
[2025-02-14] MEDS: LACTATED RINGER'S 1,000 ML IV SCH (00:51)
[2025-02-14] MEDS: MAGNESIUM SULFATE / D5W 1 GM/100 ML BAG IV SCH (00:51)
[2025-02-14] MEDS: AZITHROMYCIN 500 MG/255 ML BAG IV SCH (01:38)
[2025-02-14] MEDS: AMPICILLIN/SULBACTAM SOD 3,000 MG/100 ML BAG IV SCH (04:44)
[2025-02-14] MEDS: ALBUT/IPRATROP 3MG/0.5MG NEB 3 ML VIAL NEB SCH (07:31)
[2025-02-14] MEDS: BUDESONIDE 0.5 MG/2 ML VIAL (PULMICORT) NEB SCH (07:31)
[2025-02-14 07:55] LABS: Hematocrit (blood only) 37.0 % (37.0-47.0); Hemoglobin 12.3 g/dL (12.0-16.0); Mean Corpuscular Hemoglobin 30.8 pg (25.0-34.0); Mean Corpuscular Volume 92.5 fL (80.0-100.0); Platelet Count 352 K/uL (130-400); RDW Standard Deviation 49.4 fL (36.4-46.3); Red Blood Count 4.00 M/uL (4.20-5.40); White Blood Count 10.51 K/ul (4.8-10.8)
[2025-02-14 08:10] LABS: Alanine Aminotransferase 36.0 U/L (7-52); Albumin Globulin Ratio 0.9 (0.9-2); Albumin Level 2.9 gm/dl (3.4-5.0); Alkaline Phosphatase 47.0 U/L (34-104); Anion Gap 8.0 (3-11); Bilirubin,Total 0.3 mg/dl (0.2-1.0); Blood Urea Nitrogen 23.0 mg/dl (6-23); Calcium 7.5 mg/dl (8.6-10.3); Carbon Dioxide 27.0 mmol/L (21-32); Chloride 103.0 mmol/L (98-107); Creatinine Clr Calc Pharmacy 51.3 ml/min; Globulin 3.1 gm/dl (2.5-4.0); Glucose 158.0 mg/dl (70-99(Fasting)); Magnesium 2.7 mg/dl (1.7-2.4); Potassium 3.6 mmol/L (3.5-5.1); Sodium 138.0 mmol/L (136-145); Total Protein 6.0 gm/dl (6.0-8.3)
[2025-02-14 08:13] LABS: Acanthocytes 2+; Howell-Jolly Bodies 1+; Immature Granulocytes # (auto) 0.07 K/uL (0.01-0.20); Immature Granulocytes % (auto) 0.7 %
[2025-02-14 08:19] LABS: INR 1.0 (0.9-1.1); Partial Thromboplastin Time 27 Seconds (21-31); Prothrombin Time 10.6 Seconds (9.0-12.0)
[2025-02-14] MEDS: FONDAPARINUX 2.5 MG/0.5 ML SYR SQ SCH (08:58)
[2025-02-14] MEDS: PANTOprazole 40 MG/10 ML SYR IV SCH (08:59)
--- NOTE | 2025-02-14 09:22 | Hospitalist Progress Note ---
Date of Service February 14, 2025 Assessment & Plan (1) Acute respiratory failure with hypoxia: Plan: 2nd to COVID-19 infection/left lower lobe pneumonia HAP- Solu-Medrol 40 mg IV every 8 hours Continue Unasyn 3 g IV every 6 hours begun in the ED Azithromycin 500 mg IV every 24 hours MRSA swab Duonebs every 4 hours while awake and every 2 hours when necessary. Budesonide 0.5 mg inhaled twice daily LR at 80 mL/h x 2 L Tylenol 1 g IV every 8 hours as needed for mild pain or fever Pantoprazole 40 mg IV daily Zofran 4 mg IV every 6 hours as needed COVID precautions NPO for now, until confusion improves. (2) Cognitive impairment: Plan: Patient had been admitted to [facility] from 02/10- 02/12, then was transferred to [facility] rehab, prior to being transferred to [facility] emergency department on 02/13. CT scan of head and MRI brain at [place] were negative for acute findings CT scan of head this evening at [facility] shows chronic small vessel disease, no acute findings. Patient's confusion at this point is more likely associated with encephalopathy associated with infections as above, complicating underlying problem of cognitive impairment with memory deficits. Follow response as above infections are treated. (3) Urinary tract infection: Plan: Follow urine culture and sensitivity Antibiotics as above IV fluids Plan The patient is a 79-year-old female with a past medical history including anxiety, osteoarthritis, asthma, lung cancer, coronary disease, colon cancer, carotid artery disease, chronic back and neck pain with history of compression fractures, COPD, depression, diabetes mellitus type 2, dysphagia, GERD esophagitis, hard of hearing, hiatal hernia, hyperlipidemia, hypertension, urinary incontinence, cognitive impairment with memory deficits, neuropathy, obesity, pulmonary fibrosis, rhabdomyolysis, and sleep apnea. She is referred from [facility] rehab today, where a rapid response was called when she had an episode of emesis at therapy, and there was concern regarding aspiration pneumonia earlier this evening. She was noted to have labored breathing and oxygen saturation was 87-89% on room air, and she appeared pale in color. She was unable to follow instructions at that time and appeared more confused and had increasing weakness. She was given Zofran. She then had a second episode of emesis at 1104. EMS was then called to [facility], patient was thought to have probable aspiration with pulse ox in the 80s on room air. She was then brought to [facility] emergency department for further evaluation. Workup at [facility] included the following abnormal laboratories: Magnesium 1.7, potassium 3.5, glucose 160, COVID-positive, flu and RSV negative, urinalysis was suggestive of infection. CT scan of head showed chronic small vessel disease. CT scan of abdomen and pelvis showed a left lower lobe infiltrate, right sided partial colectomy, and slight bilateral perinephric stranding bilaterally. Procalcitonin 6.08, albumin 3.0, AST 48. Patient was found to have a pulse ox of 88% on room air, which improved to 92% on 3 L. From the ED patient was given normal saline 500 mL bolus, and Unasyn 3 g IV. She was then referred for evaluation for admission to [facility] hospitalist service. Patient had initially been seen at [facility] emergency department on 02/10, with complaints of confusion, blurred vision, and left- sided weakness. She was evaluated there as a stroke alert, had a CT of the head which showed no significant findings. Neurology was contacted, and they recommended increasing her statin, getting an MRI of the brain, and continuing aspirin. Lab work and other imaging there did not demonstrate any acute findings. The diagnosis there was transient ischemic attack. MRI of the brain showed no evidence of acute stroke. Patient remained neurologically intact while she was admitted there, and no weakness was demonstrated or blurred vision. Family reported at that time that her mental status seemed to be at baseline. She was transferred to [facility] rehab on 02/12 for inpatient rehab therapy. Physical deconditioning- Patient will need to return to [facility] rehab for continued inpatient care. DVT prophylaxis- Patient has been on fondaparinux, for undocumented reasons. Unclear if HIT history. Could try to further clarify with her PCP during the daytime. Admission and Anticipated Discharge Date Admission Date: February 13, 2025 Subjective No events overnight. Pt resting comfortably in bed. Review of Systems Review of Systems: CONST: Negative for fever, body aches and chills. HENT: Negative for neck pain/stiffness, headache, congestion, sore throat, swelling. EYES: Negative for discharge/pain or vision changes. RESP: Negative for cough/hemoptysis and shortness of breath. CV: Negative chest pain, difficulty breathing, palpitations. ABD: Negative pain, nausea, vomiting. : Negative increase frequency, dysuria, blood in urine or stool. MUSC: Negative for muscle aches, edema. SKIN: Negative rash, lesions/sores. NEURO: Negative headache, dizziness, weakness. Physical Exam Physical Exam: GENERAL APPEARANCE NAD, activity normal for age, well developed/ well nourished, no cyanosis, pallor, or diaphoresis. EYES lids/conjunctiva normal. EARS/NOSE/THROAT Mucous membranes moist, nares normal, lips/teeth normal uvula midline without oral pharyngeal erythema, exudate or swelling TMs normal bilaterally. No lymphangitis/lymphedema. HEAD/NECK normocephalic atraumatic, no facial trauma, neck is supple. RESPIRATORY respiratory effort normal, speaks in full sentences, no tripod position, no accessory muscle use. Lungs clear to auscultation without rhonchi, wheezes, rales CARDIAC Regular rate and rhythm, no edema. ABDOMINAL Soft, ND/NT. No evidence of fluid wave. No pulsatile masses on exam, rebound tenderness, Mayer sign or pain over Mcburney's point. MUSCLES/EXTREMITIES No abnormal range of motion, no swelling. SKIN Warm, pink and dry. No rashes, dermatoses, petechiae or lesions. NEUROLOGICAL Speech is clear and appropriate. Normal level of consciousness. Gait and coordination are normal. 5/5 strength in all extremities. PSYCH Normal mood and affect. Judgement/competence is appropriate Results & Data Results & Data Vital Signs (Past 12 Hours) Vital Signs Temp Pulse Pulse Resp BP BP Pulse Ox 02/14/25 07:48 36.6 C 77 20 114/74 95 02/14/25 07:31 70 18 95 02/14/25 07:00 68 02/14/25 03:04 36.7 C 73 18 113/75 96 02/14/25 01:27 02/14/25 01:27 37.4 C 18 L 18 105/67 95 02/14/25 00:37 82 02/13/25 23:22 37.0 C 02/13/25 22:45 84 17 131/87 92 02/13/25 22:30 80 20 114/74 93 02/13/25 22:15 86 20 118/65 92 02/13/25 22:00 85 15 102/76 92 02/13/25 21:45 19 112/75 92 02/13/25 21:30 88 20 91 O2 Del Method O2 Flow Rate 02/14/25 07:48 Nasal Cannula 2 02/14/25 07:31 Nasal Cannula 3 02/14/25 07:00 02/14/25 03:04 Nasal Cannula 4 02/14/25 01:27 Nasal Cannula 3 02/14/25 01:27 Nasal Cannula 2 02/14/25 00:37 02/13/25 23:22 02/13/25 22:45 Nasal Cannula 3 02/13/25 22:30 Nasal Cannula 3 02/13/25 22:15 Nasal Cannula 3 02/13/25 22:00 Nasal Cannula 3 02/13/25 21:45 Nasal Cannula 3 02/13/25 21:30 Nasal Cannula 3 PG Care Time/CCT Total # of Minutes Spent Total Time Spent with Patient: Total time spent is greater than 50% in coordination of care (as documented) at patient's floor/unit and/or counseling patient: Coding Level of Care Code 89990 SUB INP/OBS CARE 2/35MIN Diagnoses Acute respiratory failure with hypoxia J96.01 Cognitive impairment R41.89 Urinary tract infection N39.0
--- NOTE | 2025-02-14 10:15 | Electrocardiogram Report ---
Test Reason : Blood Pressure : */* mmHG Vent. Rate : 96 BPM Atrial Rate : 96 BPM P-R Int : 172 ms QRS Dur : 82 ms QT Int : 360 ms P-R-T Axes : 62 -29 59 degrees QTcB Int : 454 ms Normal sinus rhythm Cannot rule out Anterior infarct , age undetermined Abnormal ECG Confirmed by Niranjan Messina ([id number]) on 02/14/2025 10:14:39 AM Referred By: Confirmed By: Niranjan Messina
[2025-02-14] MEDS: COUGH DROP (SUGAR FREE) LOZ 24 LOZ/1 BOX BUCCAL PRN (20:24)
[2025-02-15] MEDS: ACETAMINOPHEN 1,000 MG/100 ML VIAL IV PRN (04:31)
[2025-02-15 06:27] LABS: Hematocrit (blood only) 34.1 % (37.0-47.0); Hemoglobin 11.5 g/dL (12.0-16.0); Immature Granulocytes # (auto) 0.07 K/uL (0.01-0.20); Immature Granulocytes % (auto) 0.6 %; Mean Corpuscular Hemoglobin 31.0 pg (25.0-34.0); Mean Corpuscular Volume 91.9 fL (80.0-100.0); Platelet Count 366 K/uL (130-400); RDW Standard Deviation 49.3 fL (36.4-46.3); Red Blood Count 3.71 M/uL (4.20-5.40); White Blood Count 12.26 K/ul (4.8-10.8)
[2025-02-15 06:55] LABS: Alanine Aminotransferase 34.0 U/L (7-52); Albumin Globulin Ratio 1.0 (0.9-2); Albumin Level 2.9 gm/dl (3.4-5.0); Alkaline Phosphatase 46.0 U/L (34-104); Anion Gap 8.0 (3-11); Bilirubin,Total 0.3 mg/dl (0.2-1.0); Blood Urea Nitrogen 29.0 mg/dl (6-23); Calcium 7.3 mg/dl (8.6-10.3); Carbon Dioxide 27.0 mmol/L (21-32); Chloride 104.0 mmol/L (98-107); Creatinine Clr Calc Pharmacy 43.0 ml/min; Globulin 2.9 gm/dl (2.5-4.0); Glucose 168.0 mg/dl (70-99(Fasting)); Magnesium 2.3 mg/dl (1.7-2.4); Potassium 3.9 mmol/L (3.5-5.1); Sodium 139.0 mmol/L (136-145); Total Protein 5.8 gm/dl (6.0-8.3)
[2025-02-15 06:56] LABS: INR 1.0 (0.9-1.1); Partial Thromboplastin Time 26 Seconds (21-31); Prothrombin Time 10.6 Seconds (9.0-12.0)
--- NOTE | 2025-02-15 10:01 | Hospitalist Progress Note ---
Date of Service February 15, 2025 Assessment & Plan (1) Acute respiratory failure with hypoxia: Plan: 2nd to COVID-19 infection/left lower lobe pneumonia HAP- Solu-Medrol 40 mg IV every 8 hours, change to prednisone 40mg daily Continue Unasyn 3 g IV every 6 hours begun in the ED Azithromycin 500 mg IV every 24 hours MRSA swab Duonebs every 4 hours while awake and every 2 hours when necessary. Budesonide 0.5 mg inhaled twice daily LR at 80 mL/h x 2 L Tylenol 1 g IV every 8 hours as needed for mild pain or fever Pantoprazole 40 mg IV daily Zofran 4 mg IV every 6 hours as needed COVID precautions Plan for d/c back to [facility] 02/16 (2) Cognitive impairment: Plan: Patient had been admitted to [facility] from 02/10- 02/12, then [facility], prior to being transferred to [facility] emergency department on 02/13. CT scan of head and MRI brain at [place] were negative for acute findings CT scan of head this evening at [facility] shows chronic small vessel disease, no acute findings. Patient's confusion at this point is more likely associated with encephalopathy associated with infections as above, complicating underlying problem of cognitive impairment with memory deficits. Follow response as above infections are treated. (3) Urinary tract infection: Plan: Follow urine culture and sensitivity Antibiotics as above IV fluids Plan The patient is a 79-year-old female with a past medical history including anxiety, osteoarthritis, asthma, lung cancer, coronary disease, colon cancer, carotid artery disease, chronic back and neck pain with history of compression fractures, COPD, depression, diabetes mellitus type 2, dysphagia, GERD esophagitis, hard of hearing, hiatal hernia, hyperlipidemia, hypertension, urinary incontinence, cognitive impairment with memory deficits, neuropathy, obesity, pulmonary fibrosis, rhabdomyolysis, and sleep apnea. She is referred from [facility] rehab today, where a rapid response was called when she had an episode of emesis at therapy, and there was concern regarding aspiration pneumonia earlier this evening. She was noted to have labored breathing and oxygen saturation was 87-89% on room air, and she appeared pale in color. She was unable to follow instructions at that time and appeared more confused and had increasing weakness. She was given Zofran. She then had a second episode of emesis at 1104. EMS was then called to [facility], patient was thought to have probable aspiration with pulse ox in the 80s on room air. She was then brought to [facility] emergency department for further evaluation. Workup at [facility] included the following abnormal laboratories: Magnesium 1.7, potassium 3.5, glucose 160, COVID-positive, flu and RSV negative, urinalysis was suggestive of infection. CT scan of head showed chronic small vessel disease. CT scan of abdomen and pelvis showed a left lower lobe infiltrate, right sided partial colectomy, and slight bilateral perinephric stranding bilaterally. Procalcitonin 6.08, albumin 3.0, AST 48. Patient was found to have a pulse ox of 88% on room air, which improved to 92% on 3 L. From the ED patient was given normal saline 500 mL bolus, and Unasyn 3 g IV. She was then referred for evaluation for admission to [facility] hospitalist service. Patient had initially been seen at [facility] emergency department on 02/10, with complaints of confusion, blurred vision, and left- sided weakness. She was evaluated there as a stroke alert, had a CT of the head which showed no significant findings. Neurology was contacted, and they recommended increasing her statin, getting an MRI of the brain, and continuing aspirin. Lab work and other imaging there did not demonstrate any acute findings. The diagnosis there was transient ischemic attack. MRI of the brain showed no evidence of acute stroke. Patient remained neurologically intact while she was admitted there, and no weakness was demonstrated or blurred vision. Family reported at that time that her mental status seemed to be at baseline. She was transferred to [facility] on 02/12 for inpatient rehab therapy. Physical deconditioning- Patient will need to return to [facility] for continued inpatient care. DVT prophylaxis- Patient has been on fondaparinux, for undocumented reasons. Unclear if HIT history. Could try to further clarify with her PCP during the daytime. Admission and Anticipated Discharge Date Admission Date: February 13, 2025 Subjective No events overnight. Pt resting comfortably in bed. Review of Systems Review of Systems: CONST: Negative for fever, body aches and chills. HENT: Negative for neck pain/stiffness, headache, congestion, sore throat, swelling. EYES: Negative for discharge/pain or vision changes. RESP: Negative for cough/hemoptysis and shortness of breath. CV: Negative chest pain, difficulty breathing, palpitations. ABD: Negative pain, nausea, vomiting. : Negative increase frequency, dysuria, blood in urine or stool. MUSC: Negative for muscle aches, edema. SKIN: Negative rash, lesions/sores. NEURO: Negative headache, dizziness, weakness. Physical Exam Physical Exam: GENERAL APPEARANCE NAD, activity normal for age, well developed/ well nourished, no cyanosis, pallor, or diaphoresis. EYES lids/conjunctiva normal. EARS/NOSE/THROAT Mucous membranes moist, nares normal, lips/teeth normal uvula midline without oral pharyngeal erythema, exudate or swelling TMs normal bilaterally. No lymphangitis/lymphedema. HEAD/NECK normocephalic atraumatic, no facial trauma, neck is supple. RESPIRATORY respiratory effort normal, speaks in full sentences, no tripod position, no accessory muscle use. Lungs clear to auscultation without rhonchi, wheezes, rales CARDIAC Regular rate and rhythm, no edema. ABDOMINAL Soft, ND/NT. No evidence of fluid wave. No pulsatile masses on exam, rebound tenderness, Mayer sign or pain over Mcburney's point. MUSCLES/EXTREMITIES No abnormal range of motion, no swelling. SKIN Warm, pink and dry. No rashes, dermatoses, petechiae or lesions. NEUROLOGICAL Speech is clear and appropriate. Normal level of consciousness. Gait and coordination are normal. 5/5 strength in all extremities. PSYCH Normal mood and affect. Judgement/competence is appropriate Results & Data Results & Data Vital Signs (Past 12 Hours) Vital Signs Temp Pulse Pulse Resp BP Pulse Ox Pulse Ox 02/15/25 07:40 36.5 C 82 20 149/86 H 98 02/15/25 07:34 81 15 97 02/15/25 03:29 36.9 C 84 22 147/85 H 98 02/15/25 00:50 95 02/14/25 23:18 36.9 C 88 19 119/76 96 O2 Del Method O2 Del Method O2 Flow Rate O2 Flow Rate 02/15/25 07:40 Room Air 02/15/25 07:34 Nasal Cannula 2 02/15/25 03:29 Nasal Cannula 02/15/25 00:50 Nasal Cannula 2 02/14/25 23:18 Nasal Cannula 2 PG Care Time/CCT Total # of Minutes Spent Total Time Spent with Patient: Total time spent is greater than 50% in coordination of care (as documented) at patient's floor/unit and/or counseling patient: Coding Level of Care Code 43324 SUB INP/OBS CARE 2/35MIN Diagnoses Acute respiratory failure with hypoxia J96.01 Cognitive impairment R41.89 Urinary tract infection N39.0
[2025-02-15] MEDS: POLYETHYLENE (MIRALAX) 17 GM PACK PO SCH (10:12)
[2025-02-15] MEDS: DOCUSATE SODIUM 100 MG CAP PO SCH (10:12)
[2025-02-15] MEDS: METOPROLOL TARTRATE 25 MG TAB PO SCH (14:35)
[2025-02-16 06:42] LABS: Hematocrit (blood only) 34.7 % (37.0-47.0); Hemoglobin 11.9 g/dL (12.0-16.0); Mean Corpuscular Hemoglobin 31.6 pg (25.0-34.0); Mean Corpuscular Volume 92.3 fL (80.0-100.0); Platelet Count 383 K/uL (130-400); RDW Standard Deviation 49.7 fL (36.4-46.3); Red Blood Count 3.76 M/uL (4.20-5.40); White Blood Count 12.25 K/ul (4.8-10.8)
[2025-02-16 07:09] LABS: INR 1.0 (0.9-1.1); Partial Thromboplastin Time 23 Seconds (21-31); Prothrombin Time 10.3 Seconds (9.0-12.0)
[2025-02-16 07:15] LABS: Alanine Aminotransferase 59.0 U/L (7-52); Albumin Globulin Ratio 1.1 (0.9-2); Albumin Level 3.1 gm/dl (3.4-5.0); Alkaline Phosphatase 48.0 U/L (34-104); Anion Gap 8.0 (3-11); Bilirubin,Total 0.4 mg/dl (0.2-1.0); Blood Urea Nitrogen 24.0 mg/dl (6-23); Calcium 7.5 mg/dl (8.6-10.3); Carbon Dioxide 28.0 mmol/L (21-32); Chloride 106.0 mmol/L (98-107); Creatinine Clr Calc Pharmacy 49.0 ml/min; Globulin 2.8 gm/dl (2.5-4.0); Glucose 105.0 mg/dl (70-99(Fasting)); Magnesium 2.3 mg/dl (1.7-2.4); Potassium 3.8 mmol/L (3.5-5.1); Sodium 142.0 mmol/L (136-145); Total Protein 5.9 gm/dl (6.0-8.3)
[2025-02-16 07:54] LABS: ALC (manual) 1.47 K/uL (1.2-3.4); ANC (manual) 9.68 K/uL (1.4-6.5); Acanthocytes 1+; Polychromasia 1+; Target Cells 1+
[2025-02-16] MEDS: DICLOFENAC SOD 1% GEL 100 GM TUBE EXT SCH (10:11)
[2025-02-16] MEDS: predniSONE 20 MG TAB PO SCH (10:12)
--- NOTE | 2025-02-16 10:28 | Hospitalist Progress Note ---
Date of Service February 16, 2025 Assessment & Plan (1) Acute respiratory failure with hypoxia: Plan: 2nd to COVID-19 infection/left lower lobe pneumonia HAP- Solu-Medrol 40 mg IV every 8 hours, change to prednisone 40mg daily Continue Unasyn 3 g IV every 6 hours begun in the ED Azithromycin 500 mg IV every 24 hours MRSA swab Duonebs every 4 hours while awake and every 2 hours when necessary. Budesonide 0.5 mg inhaled twice daily LR at 80 mL/h x 2 L Tylenol 1 g IV every 8 hours as needed for mild pain or fever Pantoprazole 40 mg IV daily Zofran 4 mg IV every 6 hours as needed COVID precautions Plan for d/c back to [facility] once bed available (2) Cognitive impairment: Plan: Patient had been admitted to [facility] from 02/10- 02/12, then was transferred to [facility] rehab, prior to being transferred to [facility] emergency department on 02/13. CT scan of head and MRI brain at [place] were negative for acute findings CT scan of head this evening at [facility] shows chronic small vessel disease, no acute findings. Patient's confusion at this point is more likely associated with encephalopathy associated with infections as above, complicating underlying problem of cognitive impairment with memory deficits. Follow response as above infections are treated. (3) Urinary tract infection: Plan: Follow urine culture and sensitivity Antibiotics as above IV fluids Plan The patient is a 79-year-old female with a past medical history including anxiety, osteoarthritis, asthma, lung cancer, coronary disease, colon cancer, carotid artery disease, chronic back and neck pain with history of compression fractures, COPD, depression, diabetes mellitus type 2, dysphagia, GERD esophagitis, hard of hearing, hiatal hernia, hyperlipidemia, hypertension, urinary incontinence, cognitive impairment with memory deficits, neuropathy, o besity, pulmonary fibrosis, rhabdomyolysis, and sleep apnea. She is referred from [facility] rehab today, where a rapid response was called when she had an episode of emesis at therapy, and there was concern regarding aspiration pneumonia earlier this evening. She was noted to have labored breathing and oxygen saturation was 87-89% on room air, and she appeared pale in color. She was unable to follow instructions at that time and appeared more confused and had increasing weakness. She was given Zofran. She then had a second episode of emesis at 1104. EMS was then called to [facility], patient was thought to have probable aspiration with pulse ox in the 80s on room air. She was then brought to [facility] emergency department for further evaluation. Workup at [facility] included the following abnormal laboratories: Magnesium 1.7, potassium 3.5, glucose 160, COVID-positive, flu and RSV negative, urinalysis was suggestive of infection. CT scan of head showed c hronic small vessel disease. CT scan of abdomen and pelvis showed a left lower lobe infiltrate, right sided partial colectomy, and slight bilateral perinephric stranding bilaterally. Procalcitonin 6.08, albumin 3.0, AST 48. Patient was found to have a pulse ox of 88% on room air, which improved to 92% on 3 L. From the ED patient was given normal saline 500 mL bolus, and Unasyn 3 g IV. She was then referred for evaluation for admission to [facility] hospitalist service. Patient had initially been seen at [facility] emergency department on 02/10, with complaints of confusion, blurred vision, and left- sided weakness. She was evaluated there as a stroke alert, had a CT of the head which showed no significant findings. Neurology was contacted, and they recommended increasing her statin, getting an MRI of the brain, and continuing aspirin. Lab work and other imaging there did not demonstrate any acute findings. The diagnosis there was transient ischemic attack. MRI of the brain showed no evidence of acute stroke. Patient remained neurologically intact while she was admitted there, and no weakness was demonstrated or blurred vision. Family reported at that time that her mental status seemed to be at baseline. She was transferred to [facility] rehab on 02/12 for inpatient rehab therapy. Physical deconditioning- Patient will need to return to [facility] rehab for continued inpatient care. DVT prophylaxis- Patient has been on fondaparinux, for undocumented reasons. Unclear if HIT history. Could try to further clarify with her PCP during the daytime. Admission and Anticipated Discharge Date Admission Date: February 13, 2025 Subjective No events overnight. Pt resting comfortably in bed. Review of Systems Review of Systems: CONST: Negative for fever, body aches and chills. HENT: Negative for neck pain/stiffness, headache, congestion, sore throat, swelling. EYES: Negative for discharge/pain or vision changes. RESP: Negative for cough/hemoptysis and shortness of breath. CV: Negative chest pain, difficulty breathing, palpitations. ABD: Negative pain, nausea, vomiting. : Negative increase frequency, dysuria, blood in urine or stool. MUSC: Negative for muscle aches, edema. SKIN: Negative rash, lesions/sores. NEURO: Negative headache, dizziness, weakness. Physical Exam Physical Exam: GENERAL APPEARANCE NAD, activity normal for age, well developed/ well nourished, no cyanosis, pallor, or diaphoresis. EYES lids/conjunctiva normal. EARS/NOSE/THROAT Mucous membranes moist, nares normal, lips/teeth normal uvula midline without oral pharyngeal erythema, exudate or swelling TMs normal bilaterally. No lymphangitis/lymphedema. HEAD/NECK normocephalic atraumatic, no facial trauma, neck is supple. RESPIRATORY respiratory effort normal, speaks in full sentences, no tripod position, no accessory muscle use. Lungs clear to auscultation without rhonchi, wheezes, rales CARDIAC Regular rate and rhythm, no edema. ABDOMINAL Soft, ND/NT. No evidence of fluid wave. No pulsatile masses on exam, rebound tenderness, Mayer sign or pain over Mcburney's point. MUSCLES/EXTREMITIES No abnormal range of motion, no swelling. SKIN Warm, pink and dry. No rashes, dermatoses, petechiae or lesions. NEUROLOGICAL Speech is clear and appropriate. Normal level of consciousness. Gait and coordination are normal. 5/5 strength in all extremities. PSYCH Normal mood and affect. Judgement/competence is appropriate Results & Data Results & Data Vital Signs (Past 12 Hours) Vital Signs Temp Pulse Resp BP Pulse Ox O2 Del Method O2 Flow Rate 02/16/25 07:03 77 18 93 Room Air 02/16/25 07:01 36.9 C 77 16 128/78 93 Room Air 02/16/25 03:24 36.6 C 79 18 109/67 92 Nasal Cannula 2 02/15/25 23:00 Nasal Cannula 2 02/15/25 22:52 36.9 C 114 H 20 124/71 95 Nasal Cannula 2.0 PG Care Time/CCT Total # of Minutes Spent Total Time Spent with Patient: Total time spent is greater than 50% in coordination of care (as documented) at patient's floor/unit and/or counseling patient: Coding Level of Care Code 72019 SUB INP/OBS CARE 235MIN Diagnoses Acute respiratory failure with hypoxia J96.01 Cognitive impairment R41.89 Urinary tract infection N39.0
[2025-02-16] MEDS: PIPERACILLIN/TAZOBACTAM 4.5 GM/100 ML BAG IV ONE (14:05)
[2025-02-16] MEDS: PIPERACILLIN/TAZOBACTAM 4.5 GM/100 ML BAG IV SCH (20:07)
--- NOTE | 2025-02-17 10:01 | Hospitalist Progress Note ---
Date of Service February 17, 2025 Assessment & Plan (1) Acute respiratory failure with hypoxia: Plan: 2nd to COVID-19 infection/left lower lobe pneumonia HAP- Solu-Medrol 40 mg IV every 8 hours, changed to prednisone 40mg, continue daily taper Duonebs every 4 hours while awake and every 2 hours when necessary. Budesonide 0.5 mg inhaled twice daily Zosyn for treatment of HAP (day #4 of abx) Can complete course of po antibiotics upon d/c, total of 7 days Plan for d/c back to [facility] once bed available (2) Cognitive impairment: Plan: Patient had been admitted to [facility] from 02/10- 02/12, then was transferred to [facility] rehab, prior to being transferred to [facility] emergency department on 02/13. CT scan of head and MRI brain at [facility] were negative for acute findings CT scan of head this evening at [facility] shows chronic small vessel disease, no acute findings. Patient's confusion at this point is more likely associated with encephalopathy associated with infections as above, complicating underlying problem of cognitive impairment with memory deficits. Follow response as above infections are treated. (3) Urinary tract infection: Plan: -urine culture growing pseudomonas -sensitive to Zosyn Plan The patient is a 79-year-old female with a past medical history including anxiety, osteoarthritis, asthma, lung cancer, coronary disease, colon cancer, carotid artery disease, chronic back and neck pain with history of compression fractures, COPD, depression, diabetes mellitus type 2, dysphagia, GERD esophagitis, hard of hearing, hiatal hernia, hyperlipidemia, hypertension, urinary incontinence, cognitive impairment with memory deficits, neuropathy, obesity, pulmonary fibrosis, rhabdomyolysis, and sleep apnea. She is referred from [facility] rehab today, where a rapid response was called when she had an episode of emesis at therapy, and there was concern regarding aspiration pneumonia earlier this evening. She was noted to have labored breathing and oxygen saturation was 87-89% on room air, and she appeared pale in color. She was unable to follow instructions at that time and appeared more confused and had increasing weakness. She was given Zofran. She then had a second episode of emesis at 1104. EMS was then called to [facility], patient was thought to have probable aspiration with pulse ox in the 80s on room air. She was then brought to [facility] emergency department for further evaluation. Workup at [facility] included the following abnormal laboratories: Magnesium 1.7, potassium 3.5, glucose 160, COVID-positive, flu and RSV negative, urinalysis was suggestive of infection. CT scan of head showed chronic small vessel disease. CT scan of abdomen and pelvis showed a left lower lobe infiltrate, right sided partial colectomy, and slight bilateral perinephric stranding bilaterally. Procalcitonin 6.08, albumin 3.0, AST 48. Patient was found to have a pulse ox of 88% on room air, which improved to 92% on 3 L. From the ED patient was given normal saline 500 mL bolus, and Unasyn 3 g IV. She was then referred for evaluation for admission to [facility] hospitalist service. Patient had initially been seen at [facility] emergency department on 02/10, with complaints of confusion, blurred vision, and left- sided weakness. She was evaluated there as a stroke alert, had a CT of the head which showed no significant findings. Neurology was contacted, and they recommended increasing her statin, getting an MRI of the brain, and continuing aspirin. Lab work and other imaging there did not demonstrate any acute findings. The diagnosis there was transient ischemic attack. MRI of the brain showed no evidence of acute stroke. Patient remained neurologically intact while she was admitted there, and no weakness was demonstrated or blurred vision. Family reported at that time that her mental status seemed to be at baseline. She was transferred to [facility] rehab on 02/12 for inpatient rehab therapy. Physical deconditioning- Patient will need to return to [facility] rehab for continued inpatient care. DVT prophylaxis- Patient has been on fondaparinux, for undocumented reasons. Unclear if HIT history. Could try to further clarify with her PCP during the daytime. Admission and Anticipated Discharge Date Admission Date: February 13, 2025 Subjective No events overnight. Pt resting comfortably in bed. Review of Systems Review of Systems: CONST: Negative for fever, body aches and chills. HENT: Negative for neck pain/stiffness, headache, congestion, sore throat, swelling. EYES: Negative for discharge/pain or vision changes. RESP: Negative for cough/hemoptysis and shortness of breath. CV: Negative chest pain, difficulty breathing, palpitations. ABD: Negative pain, nausea, vomiting. : Negative increase frequency, dysuria, blood in urine or stool. MUSC: Negative for muscle aches, edema. SKIN: Negative rash, lesions/sores. NEURO: Negative headache, dizziness, weakness. Physical Exam Physical Exam: GENERAL APPEARANCE NAD, activity normal for age, well developed/ well nourished, no cyanosis, pallor, or diaphoresis. EYES lids/conjunctiva normal. EARS/NOSE/THROAT Mucous membranes moist, nares normal, lips/teeth normal uvula midline without oral pharyngeal erythema, ex udate or swelling TMs normal bilaterally. No lymphangitis/lymphedema. HEAD/NECK normocephalic atraumatic, no facial trauma, neck is supple. RESPIRATORY respiratory effort normal, speaks in full sentences, no tripod position, no accessory muscle use. Lungs clear to auscultation without rhonchi, wheezes, rales CARDIAC Regular rate and rhythm, no edema. ABDOMINAL Soft, ND/NT. No evidence of fluid wave. No pulsatile masses on exam, rebound tenderness, Mayer sign or pain over Mcburney's point. MUSCLES/EXTREMITIES No abnormal range of motion, no swelling. SKIN Warm, pink and dry. No rashes, dermatoses, petechiae or lesions. NEUROLOGICAL Speech is clear and appropriate. Normal level of consciousness. Gait and coordination are normal. 5/5 strength in all extremities. PSYCH Normal mood and affect. Judgement/competence is appropriate Results & Data Results & Data Vital Signs (Past 12 Hours) Vital Signs Temp Pulse Pulse Resp BP Pulse Ox Pulse Ox 02/17/25 07:34 02/17/25 07:34 80 02/17/25 07:10 78 18 93 02/17/25 06:46 36.3 C L 80 24 173/104 H 91 02/17/25 04:16 36.7 C 81 18 164/89 H 93 02/16/25 23:45 92 02/16/25 23:05 36.7 C 88 18 150/85 H 92 O2 Del Method O2 Del Method 02/17/25 07:34 Room Air 02/17/25 07:34 02/17/25 07:10 Room Air 02/17/25 06:46 Room Air 02/17/25 04:16 Room Air 02/16/25 23:45 Room Air 02/16/25 23:05 Room Air PG Care Time/CCT Total # of Minutes Spent Total Time Spent with Patient: Total time spent is greater than 50% in coordination of care (as documented) at patient's floor/unit and/or counseling patient: Coding Level of Care Code 73744 SUB INP/OBS CARE 2/35MIN Diagnoses Acute respiratory failure with hypoxia J96.01 Cognitive impairment R41.89 Urinary tract infection N39.0
[2025-02-18 11:04] LABS: Hematocrit (blood only) 36.9 % (37.0-47.0); Hemoglobin 12.6 g/dL (12.0-16.0); Immature Granulocytes # (auto) 0.43 K/uL (0.01-0.20); Immature Granulocytes % (auto) 3.8 %; Mean Corpuscular Hemoglobin 31.2 pg (25.0-34.0); Mean Corpuscular Volume 91.3 fL (80.0-100.0); Platelet Count 391 K/uL (130-400); RDW Standard Deviation 49.6 fL (36.4-46.3); Red Blood Count 4.04 M/uL (4.20-5.40); White Blood Count 11.36 K/ul (4.8-10.8)
[2025-02-18 11:14] LABS: Anion Gap 8.0 (3-11); Blood Urea Nitrogen 19.0 mg/dl (6-23); Calcium 8.0 mg/dl (8.6-10.3); Carbon Dioxide 26.0 mmol/L (21-32); Chloride 105.0 mmol/L (98-107); Creatinine Clr Calc Pharmacy 46.0 ml/min; Glucose 136.0 mg/dl (70-99(Fasting)); Magnesium 2.0 mg/dl (1.7-2.4); Potassium 4.4 mmol/L (3.5-5.1); Sodium 139.0 mmol/L (136-145)
--- NOTE | 2025-02-18 13:35 | Hospitalist Progress Note ---
Date of Service February 18, 2025 Assessment & Plan (1) Acute respiratory failure with hypoxia: (2) Cognitive impairment: (3) Urinary tract infection: (4) COVID-19: (5) Left lower lobe pneumonia: (6) GERD without esophagitis: (7) Coronary artery disease: (8) Hypertension: (9) Diabetes mellitus: Plan The patient is a 79-year-old female with a past medical history including anxiety, osteoarthritis, asthma, lung cancer, coronary disease, colon cancer, carotid artery disease, chronic back and neck pain with history of compression fractures, COPD, depression, diabetes mellitus type 2, dysphagia, GERD esophagitis, hard of hearing, hiatal hernia, hyperlipidemia, hypertension, urinary incontinence, cognitive impairment with memory deficits, neuropathy, obesity, pulmonary fibrosis, rhabdomyolysis, and sleep apnea. She is referred from [facility] rehab today, where a rapid response was called when she had an episode of emesis at therapy, and there was concern regarding aspiration pneumonia earlier this evening. She was noted to have labored breathing and oxygen saturation was 87-89% on room air, and she appeared pale in color. She was unable to follow instructions at that time and appeared more confused and had increasing weakness. She was given Zofran. She then had a second episode of emesis at 1104. EMS was then called to [facility], patient was thought to have probable aspiration with pulse ox in the 80s on room air. She was then brought to [facility] emergency department for further evaluation. Workup at [facility] included the following abnormal laboratories: Magnesium 1.7, potassium 3.5, glucose 160, COVID-positive, flu and RSV negative, urinalysis was suggestive of infection. CT scan of head showed chronic small vessel disease. CT scan of abdomen and pelvis showed a left lower lobe infiltrate, right sided partial colectomy, and slight bilateral perinephric stranding bilaterally. Procalcitonin 6.08, albumin 3.0, AST 48. Patient was found to have a pulse ox of 88% on room air, which improved to 92% on 3 L. From the ED patient was given normal saline 500 mL bolus, and Unasyn 3 g IV. She was then referred for evaluation for admission to [facility] hospitalist service. #Acute hypoxic respiratory failure #COVID-19 infection #Underlying COPD with acute exacerbation secondary to COVID-19 and pneumonia Continue IV Zosyn (day 3) Stop IV azithromycin: Patient has already received 4 days of 500 mg daily Unclear why patient never received remdesivir, at this point she is out of the window and no longer hypoxic Patient initially received IV Solu-Medrol and to be transition to oral pr ednisone 40 mg daily Continue nebs Check repeat two-view chest x-ray #Type 2 diabetes mellitus Check A1c Accu-Cheks before every meal and nightly with sliding scale insulin coverage Monitor glycemic control #Coronary artery disease #Hypertension Continue aspirin and statin and beta-esther Monitor vital signs #Cognitive impairment Continue Zoloft 25 mg p.o. nightly CODE STATUS: Full code DVT prophylaxis: Fondaparinux 2.5 mg subcutaneous daily Disposition: Patient medically stable for discharge back to [facility] when bed available Admission and Anticipated Discharge Date Admission Date: February 13, 2025 Subjective Patient seen and examined She is oriented to self only Appears comfortable, smiling, unable to get a full review of systems secondary to patient's underlying cognitive impairment Physical Exam Physical Exam: General: No acute distress Psych: Awake and oriented to self only HEENT: Anicteric sclera, moist oral mucosa CVS: Regular rate and rhythm Lungs: Bilateral air entry, no wheezing noted Abdomen: Soft, nontender, no rebound, no guarding Ext: No lower extremity edema, no calf tenderness Neuro: No focal motor deficits noted Results & Data Results & Data Vital Signs (Past 12 Hours) Vital Signs Temp Pulse Pulse Resp BP BP Pulse Ox 02/18/25 11:35 36.9 C 92 H 16 129/82 90 02/18/25 10:43 84 18 92 02/18/25 07:46 02/18/25 07:46 84 02/18/25 07:40 36.6 C 85 18 145/87 H 92 02/18/25 07:12 78 16 92 02/18/25 04:03 36.9 C 78 18 131/76 93 O2 Del Method 02/18/25 11:35 Room Air 02/18/25 10:43 Room Air 02/18/25 07:46 Room Air 02/18/25 07:46 02/18/25 07:40 Room Air 02/18/25 07:12 Room Air 02/18/25 04:03 Room Air Laboratory Results Laboratory Results - last 24 hr 02/18/25 10:32 WBC 11.36 H RBC 4.04 L Hgb 12.6 Hct 36.9 L MCV 91.3 MCH 31.2 MCHC 34.1 RDW Std Deviation 49.6 H RDW Coeff of Nelson 14.8 H Plt Count 391 MPV 10.4 Immature Gran % (Auto) 3.8 Neut % (Auto) 56.9 Lymph % (Auto) 25.9 Republic % (Auto) 11.7 Eos % (Auto) 1.1 Baso % (Auto) 0.6 Neut # (Auto) 6.46 Lymph # (Auto) 2.94 Republic # (Auto) 1.33 H Eos # (Auto) 0.13 Baso # (Auto) 0.07 Immature Gran # (Auto) 0.43 H Absolute Nucleated RBC 0.07 Nucleated RBC % (auto) 0.6 Sodium 139 Potassium 4.4 Chloride 105 Carbon Dioxide 26 Anion Gap 8 BUN 19 Creatinine 1.00 Est Cr Clr Drug Dosing 46.0 eGFR 56.95 BUN/Creatinine Ratio 19.0 Glucose 136 H Calcium 8.0 L Magnesium 2.0 PG Care Time/CCT Total # of Minutes Spent Total Time Spent with Patient: Total time spent is greater than 50% in coordination of care (as documented) at patient's floor/unit and/or counseling patient: Coding Level of Care Code 45608 SUB INP/OBS CARE 2/35MIN Diagnoses Acute respiratory failure with hypoxia J96.01 Cognitive impairment R41.89 Urinary tract infection N39.0 COVID-19 U07.1 Left lower lobe pneumonia J18.9 GERD without esophagitis K21.9 Coronary artery disease I25.10 Hypertension I10 Diabetes mellitus E11.9
[2025-02-18] MEDS ORDERED: GLUCOSE 10 TAB/TUBE PO PRN (18:04)
[2025-02-18] MEDS ORDERED: GLUCAGON FOR INJ 1 MG VIAL SQ PRN (18:04)
[2025-02-18] MEDS ORDERED: CARBOHYDRATES FOR HYPOGLYCEMIA PO PRN (18:04)
[2025-02-18] MEDS ORDERED: GLUCOSE 40% GEL 15 GM TUBE PO PRN (18:04)
[2025-02-18] MEDS ORDERED: DEXTROSE 50% 50 ML SYRINGE IV PRN (18:04)
[2025-02-18] MEDS ORDERED: PHARMACY GLYCEMIC MGMT CONSULT PRN ×2 (18:04)
--- NOTE | 2025-02-18 18:24 | Pharmacy Report ---
Pharmacy Glycemic Short Note 2 - Date of Service February 18, 2025 - Glycemic Short BSG Results (Last 24 hours): 02/18/25 10:32 Glucose 136 H OUTPATIENT ANTIDIABETIC REGIMEN: * N/A HbA1c: ordered for 02/19/25 ASSESSMENT: * OH is an 79 year old female admitted on 02/13/25 with COPD exacerbation secondary to viral/bacterial infection * Pharmacy glycemic consult ordered on 02/18/25 likely due to concomitant prednisone 40 mg daily * Blood sugar on lab draw this morning of 136 mg/dL * Will utilize conservative Novolog only, reassess in AM for basal once HbA1c available PLAN FOR INPATIENT GLYCEMIC CONTROL: * Basal insulin * hold * Bolus insulin * NovoLog per scale ACHS or Q6hrs while NPO * Goal Range: Low 120 mg/dL - High 160 mg/dL * Correction Factor: 50 mg/dL/unit * Nutritional / Prandial insulin per carb ratio of 1 unit per 25 grams CHO consumed
[2025-02-18] MEDS: INSULIN ASPART PER UNIT CHARGE SC SCH (20:09)
--- NOTE | 2025-02-18 20:20 | XRay Report ---
Exam: 2 views of the chest Exam reason: Pneumonia Comparison: 02/13/2025 Technique: PA and lateral views of the chest were obtained Findings: The lungs are well-expanded. There is persistent coarsening of the pulmonary interstitial markings. There is redemonstration of multiple biopsy clips in the left lower lobe. There is stablemoderate cardiomegaly. There is no pneumothorax and no acute bony abnormalities are seen. Impression: 1. Coarsened interstitial markings unchanged from the previous exam. Differential considerations include chronic fibrosing lung changes versus interstitial pulmonary edema. 2. Prominent cardiac silhouette unchanged from the previous exam. Electronically signed by Guille Holt 02-18-2025 8:19 PM
[2025-02-19] MEDS ORDERED: Nursing to Pharmacy Communication SCH (06:15)
[2025-02-19 07:37] VITALS: RESP 18
[2025-02-19 08:09] VITALS: TEMP 98.1
[2025-02-19 09:24] LABS: Hemoglobin A1C 6.6 % (4.5-5.6)
[2025-02-19 09:34] LABS: Alanine Aminotransferase 46.0 U/L (7-52); Albumin Globulin Ratio 1.2 (0.9-2); Albumin Level 3.4 gm/dl (3.4-5.0); Alkaline Phosphatase 45.0 U/L (34-104); Anion Gap 9.0 (3-11); Bilirubin,Total 0.5 mg/dl (0.2-1.0); Blood Urea Nitrogen 19.0 mg/dl (6-23); Calcium 8.2 mg/dl (8.6-10.3); Carbon Dioxide 29.0 mmol/L (21-32); Chloride 106.0 mmol/L (98-107); Creatinine Clr Calc Pharmacy 40.7 ml/min; Globulin 2.9 gm/dl (2.5-4.0); Glucose 86.0 mg/dl (70-99(Fasting)); Magnesium 2.0 mg/dl (1.7-2.4); Potassium 3.6 mmol/L (3.5-5.1); Sodium 144.0 mmol/L (136-145); Total Protein 6.3 gm/dl (6.0-8.3)
[2025-02-19 09:49] LABS: Thyroid Stimulating Hormone 3.872 uIu/ml (0.300-4.500)
[2025-02-19 10:35] VITALS: BP 147/86
[2025-02-19] MEDS: POTASSIUM CHLORIDE CRTAB 20 MEQ TABCR PO STA (10:37)
[2025-02-19] MEDS: METOPROLOL SUCC 25MG EXT REL TAB PO SCH (10:37)
[2025-02-19 11:00] LABS: Hematocrit (blood only) 39.3 % (37.0-47.0); Hemoglobin 13.2 g/dL (12.0-16.0); Mean Corpuscular Hemoglobin 30.9 pg (25.0-34.0); Mean Corpuscular Volume 92.0 fL (80.0-100.0); Platelet Count 442 K/uL (130-400); RDW Standard Deviation 49.9 fL (36.4-46.3); Red Blood Count 4.27 M/uL (4.20-5.40); White Blood Count 10.75 K/ul (4.8-10.8)
[2025-02-19 11:32] VITALS: PULSE 74; O2SAT 94
--- NOTE | 2025-02-19 11:52 | Discharge Summary ---
Discharge Summary Date of Service February 19, 2025 Principal Dx & Hospital Course #1 = Principal Diagnosis (1) Acute respiratory failure with hypoxia: (2) Cognitive impairment: (3) Urinary tract infection: (4) COVID-19: (5) Left lower lobe pneumonia: (6) GERD without esophagitis: (7) Coronary artery disease: (8) Hypertension: (9) Diabetes mellitus: Plan The patient is a 79-year-old female with a past medical history including anxiety, osteoarthritis, asthma, lung cancer, coronary disease, colon cancer, carotid artery disease, chronic back and neck pain with history of compression fractures, COPD, depression, diabetes mellitus type 2, dysphagia, GERD esophagitis, hard of hearing, hiatal hernia, hyperlipidemia, hypertension, urinary incontinence, cognitive impairment with memory deficits, neuropathy, obesity, pulmonary fibrosis, rhabdomyolysis, and sleep apnea. She is referred from [facility] rehab today, where a rapid response was called when she had an episode of emesis at therapy, and there was concern regarding aspiration pneumonia earlier this evening. She was noted to have labored breathing and oxygen saturation was 87-89% on room air, and she appeared pale in color. She was unable to follow instructions at that time and appeared more confused and had increasing weakness. She was given Zofran. She then had a second episode of emesis at 1104. EMS was then called to [facility], patient was thought to have probable aspiration with pulse ox in the 80s on room air. She was then brought to [facility] emergency department for further evaluation. Workup at [facility] included the following abnormal laboratories: Magnesium 1.7, potassium 3.5, glucose 160, COVID-positive, flu and RSV negative, urinalysis was suggestive of infection. CT scan of head showed chronic small vessel disease. CT scan of abdomen and pelvis showed a left lower lobe infiltrate, right sided partial colectomy, and slight bilateral perinephric stranding bilaterally. Procalcitonin 6.08, albumin 3.0, AST 48. Patient was found to have a pulse ox of 88% on room air, which improved to 92% on 3 L. From the ED patient was given normal saline 500 mL bolus, and Unasyn 3 g IV. She was then referred for evaluation for admission to [facility] hospitalist service. #Acute hypoxic respiratory failure: Resolved #COVID-19 infection #Underlying COPD with acute exacerbation secondary to COVID-19 and pneumonia #Urinary tract infection with Pseudomonas aeruginosa Patient is currently saturating well on room air Switch IV Zosyn to oral Levaquin for 3 more days to finish 7-day course of antibiotics Patient initially received IV Solu-Medrol and to be transition to oral prednisone Prednisone taper as follows: Prednisone 30 mg daily for 2 days starting 02/20/2025, then taper to prednisone 20 mg daily for 2 days starting February 22, 2025, then tapered to prednisone 10 mg daily for 2 days starting February 24, 2025 and then stop Continue nebs #Type 2 diabetes mellitus A1c 6.6 Accu-Cheks before every meal and nightly with sliding scale insulin coverage while patient is on steroids Outpatient follow-up with PCP for diabetes management #Coronary artery disease #Hypertension Continue aspirin and statin and beta-esther Outpatient follow-up with PCP #Cognitive impairment B12 is 1198 TSH is 3.872 Continue Zoloft 25 mg p.o. nightly I have called and updated patient's daughter Rocio Grayson on the phone and answered all her questions. This discharge took greater than 30 minutes to coordinate Admission HPI Per Admitting Provider The patient is a 79-year-old female with a past medical history including anxi ety, osteoarthritis, asthma, lung cancer, coronary disease, colon cancer, carotid artery disease, chronic back and neck pain with history of compression fractures, COPD, depression, diabetes mellitus type 2, dysphagia, GERD esophagitis, hard of hearing, hiatal hernia, hyperlipidemia, hypertension, urinary incontinence, cognitive impairment with memory deficits, neuropathy, obesity, pulmonary fibrosis, rhabdomyolysis, and sleep apnea. She is referred from [facility] rehab today, where a rapid response was called when she had an episode of emesis at therapy, and there was concern regarding aspiration pneumonia earlier this evening. She was noted to have labored breathing and oxygen saturation was 87-89% on room air, and she appeared pale in color. She was unable to follow instructions at that time and appeared more confused and had increasing weakness. She was given Zofran. She then had a second episode of emesis at 1104. EMS was then called to [facility], patient was thought to have probable aspiration with pulse ox in the 80s on room air. She was then brought to [facility] emergency department for further evaluation. Workup at [facility] included the following abnormal laboratories: Magnesium 1.7, potassium 3.5, glucose 160, COVID-positive, flu and RSV negative, urinalysis was suggestive of infection. CT scan of head showed chronic small vessel disease. CT scan of abdomen and pelvis showed a left lower lobe infiltrate, right sided partial colectomy, and slight bilateral perinephric stranding bilaterally. Procalcitonin 6.08, albumin 3.0, AST 48. Patient was found to have a pulse ox of 88% on room air, which improved to 92% on 3 L. From the ED patient was given normal saline 500 mL bolus, and Unasyn 3 g IV. [facility] at [facility] emergency department on 02/10, with complaints of confusion, blurred vision, and left- sided weakness. She was evaluated there as a stroke alert, had a CT of the head which showed no significant findings. Neurology was contacted, and they recommended increasing her statin, getting an MRI of the brain, and continuing aspirin. Lab work and other imaging there did not demonstrate any acute findings. The diagnosis there was transient ischemic attack. MRI of the brain showed no evidence of acute stroke. Patient remained neurologically intact while she was admitted there, and no weakness was demonstrated or blurred vision. Family reported at that time that her mental status seemed to be at baseline. She was transferred to [facility] rehab on 02/12 for inpatient rehab therapy. Discharge Exam General: No acute distress Psych: Awake and oriented to self only HEENT: Anicteric sclera, moist oral mucosa CVS: Regular rate and rhythm Lungs: Bilateral air entry, no wheezing noted Abdomen: Soft, nontender, no rebound, no guarding Ext: No lower extremity edema, no calf tenderness Neuro: No focal motor deficits noted Discharge Plan Discharge Items Patient Disposition: Transfer Inpatient Rehab Fac Reason For Visit: HAP, COVID, ACUTE RESP FAILURE WITH HYPOXIA, UTI/P Discharge Diagnosis: COVID-19 infection COPD/interstitial lung disease Pneumonia Pseudomonas aeruginosa urinary tract infection Type 2 diabetes mellitus Coronary artery disease Essential hypertension Cognitive impairment Condition on Discharge: Fair Activity: As commented below Activity Comment: As tolerated with assistance Non-emergency contact: Primary Care Provider Call non-emergency contact if: you have any medication questions, your symptoms worsen and you have a fever Follow-up/Referrals: Huckestein,Cristian E, DO [Primary Care Provider] - Diet: Carb Consistent or DM2 and Heart Healthy Addtl Attending Provider Instructions: DISCHARGE INSTRUCTION TO PATIENT/FAMILY/acute rehab: Follow-up with your primary care provider within 1 week regarding: Posthospital discharge, medication review, medication refills and follow-up on all your medical problems Please take all your discharge medications, discharge information and discharge instructions to all your doctors appointments. Avoid all NSAIDs including ibuprofen, Motrin, Advil, Aleve, naproxen, meloxicam, Toradol, diclofenac Out of bed to chair for all meals, no meals in bed You have urinary tract infection with Pseudomonas aeruginosa: You were treated with IV Zosyn and you will continue with oral Levaquin 500 milligrams daily for 3 more days to finish a 7-day course of antibiotics. Prednisone taper: Prednisone 30 mg daily for 2 days starting 02/20/2025, then taper to prednisone 20 mg daily for 2 days starting February 22, 2025, then tapered to prednisone 10 mg daily for 2 days starting February 24, 2025 and then stop Labs at [facility] rehab on Tuesday02/22/25: CBC with differential, CMP, magnesium Pending Studies at Discharge: No Stand-Alone Forms: [facility] Skilled Items Patient informed of condition?: Yes DNR: No Discharge Level of Care: Acute rehab Communicable Disease: Yes (COVID-19) Discharge Prognosis: Stable Lines: None Urinary Catheter: No Medications and DC Order Prescriptions: New ipratropium-albuterol 0.5 mg-3 mg(2.5 mg base)/3 mL Solution For Nebulization 3 ml NEB TID 7 Days Qty: 7 0RF prednisone 10 mg tablet 10 mg PO DIRECTED Qty: 10 0RF Taper: Taper, Blank 30 mg DAILY for 2 Days 20 mg DAILY for 2 Days 10 mg DAILY for 2 Days Rx Instructions: Prednisone 30 mg daily for 2 days starting 02/20/2025, then taper to prednisone 20 mg daily for 2 days starting February 22, 2025, then tapered to prednisone 10 mg daily for 2 days starting February 24, 2025 and then stop levofloxacin 500 mg tablet 500 mg PO DAILY@1100 3 Days Qty: 3 0RF insulin aspart U-100 [Novolog U-100 Insulin aspart] 100 unit/mL Solution 1 unit SC ACHS Qty: 10 0RF Rx Instructions: Per sliding scale Continued sennosides-docusate sodium [Senokot-S] 8.6-50 mg Tablet 1 tab-cap PO QDL PRN (Reason: Constipation) fondaparinux 2.5 mg/0.5 mL Syringe 2.5 mg SUBCUT DAILY aspirin 81 mg Tablet,Delayed Release (Dr/Ec) 81 mg PO DAILY acetaminophen [Tylenol Extra Strength] 500 mg Tablet 1,000 mg PO Q12H PRN (Reason: Pain) acetaminophen [Tylenol Extra Strength] 500 mg Tablet 500 mg PO Q4H PRN (Reason: TEMP =>100.5) famotidine 20 mg Tablet 20 mg PO DAILY bisacodyl 10 mg Suppository 10 mg [place] DAILY PRN (Reason: Constipation) pantoprazole 40 mg Tablet,Delayed Release (Dr/Ec) 40 mg PO BID Rx Instructions: PRIOR TO BREAKFAST AND SUPPER Fleet Enema 19-7 gram/118 mL Enema 118 ml [place] DAILY PRN (Reason: Constipation) docusate sodium 100 mg Capsule 100 mg PO Q12H PRN (Reason: Constipation) sertraline 25 mg Tablet 25 mg PO HS budesonide 0.5 mg/2 mL Suspension For Nebulization 0.5 mg INHALATION BID furosemide [Lasix] 20 mg Tablet 20 mg PO DAILY gabapentin 100 mg Capsule 100 mg PO DAILY metoprolol succinate 25 mg Tablet Extended Release 24 Hr 25 mg PO DAILY polyethylene glycol 3350 [Miralax] 17 gram/dose Powder 17 g PO QDL PRN (Reason: Constipation) ondansetron [Zofran ODT] 4 mg Tablet,Disintegrating 4 mg PO Q6H PRN (Reason: NAUSEA/VOMITING) fluticasone propionate [Flonase] 50 mcg/actuation [place],Suspension 2 spray INTRANASAL DAILY PRN (Reason: Allergy Symptoms) Rx Instructions: administer into each nostril rosuvastatin [Crestor] 10 mg Tablet 20 mg PO HS formoterol fumarate [Perforomist] 20 mcg/2 mL Solution For Nebulization 20 mcg INHALATION BID cholecalciferol (vitamin D3) [Vitamin D3] 50 mcg (2,000 unit) Capsule 50 mcg PO DAILY Yupelri 175 mcg/3 mL Solution For Nebulization 175 mcg INHALATION DAILY calcium acetate 667 mg Tablet 667 mg PO DAILY Held metoclopramide HCl 5 mg Tablet 5 mg PO AC Hold Instructions: Resume on 02/27/25. Please review at [facility] to see if patient needs to continue this medication Rx Instructions: administer 30 minutes before meals Discharge Orders: Discharge Order (Routine); Ordered 02/19/25 Ordered By: Hiren Corona Admission Data Admit Date/Time: 02/13/25 23:52 Attending Provider: Hiren Corona Admit Provider: [facility] Primary Care Provider: Cristian Montes Other Providers: [facility]; [facility] Hospital Stay Data Consultations 02/13/25 22:53 ED Decision to Admit Stat Diagnostic Imagining Performed 02/13/25 20:01 CT head/brain wo con Stat 02/13/25 20:48 CT abd pelvis wo con Stat Pending Results Patient Have Any Pending Studies at Discharge: No Discharge Instructions Given to Patient (Per Discharging Provider) DISCHARGE INSTRUCTION TO PATIENT/FAMILY/acute rehab: Follow-up with your primary care provider within 1 week regarding: Posthospital discharge, medication review, medication refills and follow-up on all your medical problems Please take all your discharge medications, discharge information and discharge instructions to all your doctors appointments. Avoid all NSAIDs including ibuprofen, Motrin, Advil, Aleve, naproxen, meloxicam, Toradol, diclofenac Out of bed to chair for all meals, no meals in bed You have urinary tract infection with Pseudomonas aeruginosa: You were treated with IV Zosyn and you will continue with oral Levaquin 500 milligrams daily for 3 more days to finish a 7-day course of antibiotics. Prednisone taper: Prednisone 30 mg daily for 2 days starting 02/20/2025, then taper to prednisone 20 mg daily for 2 days starting February 22, 2025, then tapered to prednisone 10 mg daily for 2 days starting February 24, 2025 and then stop Labs at [facility] rehab on Tuesday02/22/25: CBC with differential, CMP, magnesium Total Time Total Time Spent Total Time Spent (In Minutes): 40 minutes Coding Level of Care Code 65605 INP/OBS DISCH >30 MIN Diagnoses Acute respiratory failure with hypoxia J96.01 Cognitive impairment R41.89 Urinary tract infection N39.0 COVID-19 U07.1 Left lower lobe pneumonia J18.9 GERD without esophagitis K21.9 Coronary artery disease I25.10 Hypertension I10 Diabetes mellitus E11.9
[2025-02-19] MEDS: levoFLOXacin 500 MG TAB PO SCH (12:22)
[2025-02-19] MEDS ORDERED: AMOXICILLIN/CLAVULANATE 875 MG TAB PO SCH (17:00)
[2025-02-19] MEDS ORDERED: FORMOTEROL 20 MCG/2 ML VIAL NEB SCH (19:00)
== END 2025-02-19 15:52 | DRG 177 ==
LOC: SUATTDRO → ED 19:43 → SUATTDRO 23:52 → 2S 23:52 → 3N 02-18 22:34